=== PATIENT | female | born 1945 | race Caucasian/White ===

== ENCOUNTER 2023-09-22 08:33 | Inpatient (IN) | payer MEDICARE, OTHER, SELFPAY ==
[2023-09-22] VITALS (12 sets, daily range): BP systolic 125–164; BP diastolic 53–78; PULSE 66–84; RESP 15–20; TEMP 36.4–37.1; O2SAT 95–100; BMI 30.2
--- NOTE | 2023-09-22 08:46 | XR_ITS ---
WS: [id number] Exam: XR chest 1V portable [id number] Date/Time of Exam: 09/22/2023 8:56 AM Reason For Exam: dyspnea/cough No previous exams. The lungs are clear and fully expanded. Normal cardiomediastinal silhouette. Bony structures are unre markable. Surgical clips are noted along the RIGHT axilla. IMPRESSION: 1. No acute cardiopulmonary finding.
--- NOTE | 2023-09-22 08:53 | CT_ITS ---
WS: [id number] CT HEAD NONCONTRAST HISTORY: Suspected posterior stroke 5 to 7 days old TECHNIQUE: Contiguous axial imaging performed through the brain in 2.5 mm imaging. Bone and soft tiss ue windows. Sagittal and coronal reformats reviewed. All CT scans at [facility] use at least one of these dose optimization techniques: automated exposure control; mA and/or kV adjustment per pa tient size (includes targeted exams where dose is matched to clinical indication); or iterative recon struction. DLP: 1069.48 mGy.cm COMPARISON: None available. No acute intracranial hemorrhage, midline shift or mass effect. Mild atrophy and small vessel ischemic disease. Remote lacunar infarct RIGHT external capsule. No pos terior circulation infarct. Ventricles: Normal size with no hydrocephalus. Paranasal sinuses: Mucoperiosteal thickening in the LEFT frontal and LEFT frontal ethmoid recess. No air-fluid levels. Mastoid air cells: Well pneumatized. Calvarium and scalp: Skull is intact with no soft tissue edema or swelling. IMPRESSION: 1. No acute intracranial hemorrhage or edema. 2. Mild atrophy and small vessel ischemic disease. 3. No subacute or chronic posterior circulation infarct identified. 4. Lacunar infarct RIGHT external capsule.
--- NOTE | 2023-09-22 08:54 | ED_ITS ---
HPI - Altered Mental Status 2 General: Chief Complaint: Altered Mental Status Stated Complaint: weak Time Seen by Provider: 09/22/23 08:45 Source: patient Mode of arrival: ambulatory History of Present Illness: 78-year-old female presents emergency ro om with family. Approximately a week ago she became ill she had nausea and vomiting progressively worsening difficulty answering questions and worsening word finding. She was seen 4 days ago by her primary care doctor they thought she had gastroenteritis and increased her Prilosec. She is continued to deteriorate unable to answer any questions significant word finding persistent ataxia to the point where she is not able to walk anymore normally she is able to walk transfer without any difficulty independently now she is requiring a wheelchair. She seems to have an expressive and receptive aphasia as at this point. Impressing her directly on history the most likely get out of her was that she denied being short of breath having chest pain or abdominal pain although on redirected questioning she did seem to indicate some abdominal pain and do not know that any of her answers are reliable at this point. Family denies any fever sweats or chills at home denies any hematemesis or coffee-ground emesis. They state that prior to this all beginning last week she seemed to be in relatively good health had no difficulties eating or drinking ambulation speech or cognition MD complaint: altered mental status and confusion Onset (ago): week(s) (1) Timing confirmed by: family member Severity: severe Consistency of symptoms: Getting Worse Review of Systems 2 Card: Denies: chest pain Resp: Denies: dyspnea GI: Reports: abdominal pain (?? Patient answers variably) PFS ED 2 PFSH: Medical History (Updated 09/22/23 @ 17:40 by Mauricio Conde DO) SARATH (obstructive sleep apnea) Patient stopped CPAP Narcolepsy Depression GERD (gastroesophageal reflux disease) Diabetic neuropathy Type 2 diabetes mellitus Osteoporosis Hypertension Surgical History (Updated 09/22/23 @ 12:58 by Brandon Mcginnis MD) History of colon surgery Family History Other Diabetes mellitus, type 2 Social History (Updated 09/22/23 @ 12:59 by Brandon Mcginnis MD) Smoking and tobacco/nicotine status: never used tobacco/nicotine Alcohol intake: never Physical Exam 2 Const: GENERAL APPEARANCE: cooperative and comfortable O RIENTATION/CONSCIOUSNESS: Yes awake HENMT: COMMON NORMALS: normocephalic, atraumatic and hearing grossly normal bilaterally HEAD & SCALP: normocephalic and atraumatic Resp: COMMON NORMALS: normal respiratory effort, No retractions, No use of accessory muscles and clear to auscultation bilaterally AUSCULTATION: clear to auscultation bilaterally Cardio: COMMON NORMALS: regular rate, regular rhythm and No murmurs present (Cardio) RATE: regular rate RHYTHM: regular rhythm GI: COMMON NORMALS: No hepatosplenomegaly present AUSCULTATION: Yes normoactive bowel sounds PALPATION: Yes Tenderness to palpation present (GI), No Guarding due to palpation present (GI) and Yes No hepatosplenomegaly present Extremity: COMMON NORMALS: normal to inspection, capillary refill normal, no clubbing, cyanosis or edema, no calf tenderness and no pedal edema Skin: COMMON NORMALS: no rashes or lesions noted GENERAL SKIN EXAM: no rashes or lesions noted Course 2 Vital Signs: Vital signs: Vital Signs Temperature 97.5 F L 09/22/23 16:00 Pulse Rate 66 09/22/23 16:00 Respiratory Rate 18 09/22/23 16:00 Blood Pressure 164/58 09/22/23 16:00 Pulse Oximetry 95 09/22/23 16:00 Oxygen Delivery Me thod Room Air 09/22/23 15:37 MDM - Altered Mental Status Medical Decision Making Acute kidney injury with cystitis. CT renal stone protocol negative for any obstruction. Will admit Aly placed start IV antibiotics IV fluids discussed with hospitalist orders written Medical Records I reviewed the patient's medical records. Lab Data I reviewed the patient's lab results. 09/22/23 08:53 09/22/23 08:53 Laboratory Results WBC 14.68 10^3/uL (3.29-11.43) H 09/22/23 08:53 RBC 3.92 10^6/uL (3.85-5.65) 09/22/23 08:53 Hgb 10.20 g/dL (11.27-16.99) L 09/22/23 08:53 Hct 30.6 % (36-47) L 09/22/23 08:53 MCV 78.1 fl (85-98) L 09/22/23 08:53 MCH 26.0 pg (27-33) L 09/22/23 08:53 MCHC 33.3 g/dL (30-55) 09/22/23 08:53 RDW 15.8 % (12.1-15.1) H 09/22/23 08:53 Plt Count 112 10^3/cmm (157-399) L 09/22/23 08:53 MPV Not Reportable 09/22/23 08:53 Neut % (Auto) 83.2 % 09/22/23 08:53 Lymph % (Auto) 6.6 % 09/22/23 08:53 [place] % (Auto) 7.0 % 09/22/23 08:53 Eos % (Auto) 2.3 % 09/22/23 08:53 Baso % (Auto) 0.2 % 09/22/23 08:53 Neut # (Auto) 12.20 10^3/uL (1.8-7.7) H 09/22/23 08:53 Lymph # (Auto) 1.0 10^3/uL (0.8-4.8) 09/22/23 08:53 [place] # (Auto) 1.0 10^3/uL (0.2-0.9) H 09/22/23 08:53 Eos # (Auto) 0.3 10^3/uL (0.0-0.8) 09/22/23 08:53 Baso # (Auto) 0.0 10^3/uL (0.0-0.1) 09/22/23 08:53 Nucleated RBC % (auto) 0 % 09/22/23 08:53 Nucleated RBCs # 0.0 /100WBC 09/22/23 08:53 Sodium 122 mmol/L (136-145) L 09/22/23 08:53 Potassium 4.3 mmol/L (3.5-5.1) 09/22/23 08:53 Chloride 85 mmol/L (98-107) L 09/22/23 08:53 Carbon Dioxide 18 mmol/L (22-29) L 09/22/23 08:53 Anion Gap 23.3 (5-19) H 09/22/23 08:53 BUN 95 mg/dL (8-23) H* 09/22/23 08:53 Creatinine 5.3 mg/dL (0.5-0.9) H 09/22/23 08:53 GFR Calculation Not Reportable 09/22/23 08:53 Glucose 133 mg/dL (65-115) H 09/22/23 08:53 Calculated Osmolality 285 mOsm/kg (285-295) 09/22/23 08:53 Calcium 7.7 mg/dL (8.5-10.5) L 09/22/23 08:53 Total Bilirubin 1.1 mg/dL (0.15-1.2) 09/22/23 08:53 AST 26 U/L (0-32) 09/22/23 08:53 ALT 16 U/L (0-33) 09/22/23 08:53 Alkaline Phosphatase 63 U/L (35-105) 09/22/23 08:53 Creatine Kinase 102 U/L (26-192) 09/22/23 08:53 Total Protein 6.2 g/dL (6.6-8.7) L 09/22/23 08:53 Albumin 3.3 g/dL (3.5-5.2) L 09/22/23 08:53 Globulin 2.9 g/dL (1.3-4.6) 09/22/23 08:53 Triglycerides 236 mg/dL (0-150) H 09/22/23 08:53 Urine Color Yellow (Yellow) 09/22/23 09:00 Urine Appearance Cloudy (CLEAR) A 09/22/23 09:00 Urine pH 5 (5-7) 09/22/23 09:00 Ur Specific [place] 1.015 (1.005-1.030) 09/22/23 09:00 Urine Protein 3+ (Negative) H 09/22/23 09:00 Urine Glucose (UA) Norm (Normal) 09/22/23 09:00 Urine Ketones Negative (Negative) 09/22/23 09:00 Urine Blood 3+ (Negative) H 09/22/23 09:00 Urine Nitrate Negative (Negative) 09/22/23 09:00 Urine Bilirubin Neg (Negative) 09/22/23 09:00 Urine Urobilinogen Neg mg/dL (Negative) 09/22/23 09:00 Ur Leukocyte Esterase 1+ (Negative) H 09/22/23 09:00 Urine RBC 5-10 /hpf (0-2) H 09/22/23 09:00 Urine WBC 10-15 /hpf (0-5) H 09/22/23 09:00 Ur Squamous Epith Cells 0-4 /hpf (0-5) H 09/22/23 09:00 Amorphous Sediment Not Reportable 09/22/23 09:00 Urine Bacteria 2+ /hpf (NONE) H 09/22/23 09:00 Urine Mucus Trace /hpf 09/22/23 09:00 All radiology interpretation(s) finalized by discharge Discharge Plan Discharge Patient Disposition: Admitted As Inpatient Admit Provider: Brandon Mcginnis Clinical Impression: Acute kidney injury, Hyponatremia, UTI (urinary tract infection), Anemia, Acute encephalopathy Condition: Stable Coding Level of Care Code 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
--- NOTE | 2023-09-22 08:58 | ECG_ITS ---
[facility] Test Date: 2023-09-22 Pat Name: Darline Crystal Department: Room: Gender: Female Order Clerk: : 1945 Requested By: Mauricio Vásquez Order Number: [id number] Mat MD: Jayleen Reyes M.D. Measurements Intervals [place] Rate: 70 P: 67 AK: 172 QRS: 27 QRSD: 82 T: 81 QT: 406 QTc: 441 Interpretive Statements SINUS RHYTHM No previous ECG available for comparison Electronically Signed On 09-22-2023 21:04:32 [employer]TER by Jayleen Reyes M.D. [id number]
[2023-09-22 09:03] LABS: Basophils % 0.2 %; Eosinophils # 0.3 10^3/uL (0.0-0.8); Eosinophils % 2.3 %; Hematocrit 30.6 % (36-47); Lymphocytes % 6.6 %; Mean Corpuscular HGB Conc 33.3 g/dL (30-55); Mean Corpuscular Volume 78.1 fl (85-98); Neutrophils % 83.2 %; Nucleated Red Blood Cells % 0 %; Platelet Count 112 10^3/cmm (157-399); Red Blood Count 3.92 10^6/uL (3.85-5.65); Red Cell Distribution Width 15.8 % (12.1-15.1); White Blood Count 14.68 10^3/uL (3.29-11.43)
[2023-09-22 09:27] LABS: Alanine Aminotransferase 16 U/L (0-33); Albumin Level 3.3 g/dL (3.5-5.2); Alkaline Phosphatase 63 U/L (35-105); Anion Gap 23.3 (5-19); Aspartate Amino Transferase 26 U/L (0-32); Calcium 7.7 mg/dL (8.5-10.5); Carbon Dioxide 18 mmol/L (22-29); Chloride 85 mmol/L (98-107); Creatinine Clr Calc Pharmacy 8.1521; Globulin 2.9 g/dL (1.3-4.6); Glucose 133 mg/dL (65-115); Osmolality Calculated 285 mOsm/kg (285-295); Potassium 4.3 mmol/L (3.5-5.1); Sodium 122 mmol/L (136-145); Total Bilirubin 1.1 mg/dL (0.15-1.2); Total Protein 6.2 g/dL (6.6-8.7)
[2023-09-22 09:31] LABS: Blood Urea Nitrogen 95 mg/dL (8-23)
[2023-09-22 09:39] LABS: Bilirubin Urine Neg (Negative); Blood Urine 3+ (Negative); Glucose Urine UA Norm (Normal); Ketones Urine Negative (Negative); Nitrate Urine Negative (Negative); Protein Urine 3+ (Negative); Specific Gravity, Urine 1.015 (1.005-1.030); Urine Appearance Cloudy (CLEAR); Urine Color Yellow (Yellow); pH Urine 5 (5-7)
[2023-09-22 09:40] LABS: Add Urine Culture? Yes; Add Urine Microscopic? YES; Bacteria Urine 2+ /hpf; Leukocyte Esterase Urine 1+ (Negative); Mucus Urine TRACE /hpf; Squamous Epithelial Cell Urine 0-4 /hpf (0-5); Urobilinogen Urine Neg (Negative)
--- NOTE | 2023-09-22 10:00 | PC.PHAR ---
MEDICATIONS VERIFIED BY DAUGHTER IN ER 09/22/23
--- NOTE | 2023-09-22 10:30 | CT_ITS ---
WS: [id number] CT ABDOMEN AND PELVIS NONCONTRAST HISTORY: flank pain, confusion. TECHNIQUE: Imaging performed through the abdomen and pelvis. Coronal and sagittal reformats are submi tted. All CT scans at [facility] use at least one of these dose optimization techniques: auto mated exposure control; mA and/or kV adjustment per patient size (includes targeted exams where dose is matched to clinical indication); or iterative reconstruction. DLP: 1401.71 mGy.cm COMPARISON: None available. Lower thorax: Lung bases are clear. Visualized heart is normal. No hiatal hernia. Bilateral breast im plants. Liver: Normal size liver. No mass or bile duct dilatation. Gallbladder: Gallbladder is mildly distended and hydropic. Transverse diameter 4.1 cm. Mild stranding around the gallbladder may be due to motion. Similar stranding noted around additional organs in the upper abdomen. No stones identified by CT. Common bile duct is normal size. Pancreas: Significant breathing motion artifact. Spleen: Normal. Adrenal glands: Normal RIGHT adrenal gland. 1.8 x 1.9 cm mass LEFT adrenal gland. Right kidney: Diffuse perinephric stranding secondary to motion. No obstructive pattern. Slightly bul bous contour of the lower pole but no discrete mass identified on this unenhanced exam. Left kidney: Normal size kidney with no mass or hydronephrosis. Aorta: Mild atherosclerosis abdominal aorta with no aneurysm. No free fluid, intraperitoneal air or significant lymphadenopathy. GI tract: No obstruction. Surgical anastomotic sutures at the rectosigmoid junction. Abdominal wall: Negative. No hernia. Pelvis: Well-distended urinary bladder. Osseous structures: Unremarkable. IMPRESSION: 1. No renal obstruction or calcifications. 2. No GI tract obstruction. 3. Rectosigmoid anastomosis is intact. No obstruction. 4. Mildly hydropic gallbladder. There is mild soft tissue stranding around the gallbladder but this is probably related to motion artifact. Ultrasound evaluation of the gallbladder would provide additi onal information concerning stones and cholecystitis. There is no bile duct dilatation.
[2023-09-22] MEDS: sodium chloride 0.9% 1,000 ML 999 ML IV (10:45)
[2023-09-22] MEDS: cefTRIAXone 1,000 MG in sodium chloride 0.9% (plus) 50 ML 100 MG IV (11:49)
--- NOTE | 2023-09-22 12:56 | P.HP_ITS ---
Providers/Chief Complaint 2 Admitting Physician: Brandon Mcginnis MD Chief Complaint: weak History of Present Illness Darline Crystal is a 78 year old female who comes in the emergency department with her family with history of illness for the last week. She has had vomiting, diarrhea. She saw her primary care provider on Tuesday and he was concerned that she had gastroenteritis, and possible upper GI irritation. PPI was increased. She has had no fevers. No blood in stool or black or tarry stool. She has become less responsive since Tuesday, and significantly confused. She twitches at times, noted yesterday and today. Since getting fluid in the emergency department, she seems less confused. Family reports this is never happened before. Patient is confused, has difficulty giving a history, but can answer a few simple questions. Review of Systems 2 General: Reports: 10 or more systems reviewed and unremarkable except in HPI and below Card: Denies: chest pain Resp: Denies: dyspnea Medications/Allergies Home Medications Medication Instructions Recorded Confirmed Last Taken Type alendronate 70 mg tablet 70 mg PO Q7D 09/22/23 09/22/23 Unknown History amlodipine 5 mg tablet 5 mg PO QAM 09/22/23 09/22/23 09/21/23 History gabapentin 300 mg capsule 300 mg PO TID 09/22/23 09/22/23 09/21/23 History ipratropium bromide 42 mcg (0.06 1 spray intranasal DAILY PRN 09/22/23 09/22/23 Unknown History %) nasal spray ALLERGIES losartan 50 mg-hydrochlorothiazide 1 tab PO QAM 09/22/23 09/22/23 09/21/23 History 12.5 mg tablet metformin 500 mg tablet 500 mg PO BID 09/22/23 09/22/23 09/21/23 History modafinil 100 mg tablet 100 mg PO QAM 09/22/23 09/22/23 09/21/23 History omeprazole 40 mg capsule,delayed 40 mg PO DAILY 09/22/23 09/22/23 09/21/23 History release pramipexole 0.25 mg tablet 0.25 mg PO BID 09/22/23 09/22/23 09/21/23 History tolterodine 2 mg capsule,extended 2 mg PO DAILY 09/22/23 09/22/23 09/21/23 History release 24 hr venlafaxine 75 mg capsule,extended 75 mg PO QAM 09/22/23 09/22/23 09/21/23 History release 24 hr PFSH Acute 2 PFSH: Medical History (Updated 09/22/23 @ 13:30 by Brandon Mcginnis MD) SARATH (obstructive sleep apnea) Patient stopped CPAP Narcolepsy Depression GERD (gastroesophageal reflux disease) Diabetic neuropathy Type 2 diabetes mellitus Osteoporosis Hypertension Surgical History (Updated 09/22/23 @ 12:58 by Brandon Mcginnis MD) History of colon surgery Family History Other Diabetes mellitus, type 2 Social History (Updated 09/22/23 @ 12:59 by Brandon Mcginnis MD) Smoking and tobacco/nicotine status: never used tobacco/nicotine Alcohol intake: never Vitals/I&O/Wt Last Vital Signs Temp 98 F 09/22/23 08:55 Pulse 84 09/22/23 12:30 Resp 19 H 09/22/23 12:30 BP 157/78 09/22/23 12:30 Pulse Ox 99 09/22/23 12:30 O2 Del Method Room Air 09/22/23 11:30 Weight last 48 hrs Weight 74.843 kg Physical Exam 2 Narrative: General exam demonstrates a white female, no distress, confused, occasional twitches HEENT atraumatic normocephalic. Oropharynx clear Neck is supple no lymphadenopathy thyromegaly Cardiovascular regular rate and rhythm without murmur no S3 or S4 Lungs clear no wheezing or crackles Abdomen is soft nontender with positive bowel sounds. No obvious organomegaly exams deferred Extremities no cyanosis, edema, cap refill brisk Skin no rash Neuro no obvious focal deficits, confused as above. Urinary Catheter Management: Aly: Cath Placed During This Visit: yes Urinary Catheter Date of Insertion: 09/22/23 Urinary Catheter Time of Insertion: 12:06 Data 09/22/23 08:53 09/22/23 08:53 Other Labs: MCV 78 LFTs normal Calcium 7.7, albumin 3.3 Urinalysis 3+ protein, 1+ leukocyte Estrace, 5-10 reds, 10-15 whites, 2+ bacteria Abdomen pelvis CT which I reviewed demonstrated no evidence of obstruction, rectosigmoid anastomosis intact, hydropic gallbladder. CT head which I reviewed demonstrated no acute findings, lacunar infarct right internal capsule Chest x-ray which I reviewed no infiltrate EKG per my review demonstrates sinus rhythm, normal axis, nonspecific ST-T wave changes. A&P Assessment and plan (1) Acute kidney injury: Patient presents with acute kidney injury This may have been precipitated by gastroenteritis, either way vomiting and diarrhea component of this as gone away She has approximately 400 cc of urine in her bag in the ER, making me think she may have some degree of urinary retention CT renal protocol demonstrates no evidence of obstruction Concomitant UTI may be present according to urinalysis Avoid renal toxic medications Hydration Continue to follow closely for improvement with daily measurements of creatinine Hold losartan/hydrochlorothiazide, metformin (2) Hyponatremia: Significantly hyponatremic Repeat BMP at approximately 6 PM Continue hydration as she appears to have hypovolemic hyponatremia. (3) UTI (urinary tract infection): Patient appears to have a UTI Urine culture Rocephin 1 g IV every 24 hours (4) Proteinuria: Patient with significant proteinuria. Check urine spot protein and urine spot creatinine Proteinuria could be secondary to nephrotic syndrome as patient's albumin is somewhat low, but could also be secondary to UTI Will go ahead and do urine electrophoresis serum protein electrophoresis (5) Anemia: Will be secondary to renal function Check iron studies, stool Hemoccult Consider follow-up with hematology as patient had renal failure and proteinuria. Electrophoresis studies pending (6) Acute encephalopathy: I think this is likely secondary to her renal dysfunction, in the face of ongoing doses of gabapentin. Monitor closely for improvement Hold Neurontin Plan Multiple other medical problems outlined in past medical history Reconcile medicine list tomorrow, reviewing with her amlodipine can be started as well as perhaps venlafaxine. Will want to see clinical progress/improvement with current treatment plan Full code Heparin for DVT prophylaxis Attestations 2 Medical Necessity Statement*: Will need greater than 2 midnight stay for evaluation and treatment of acute kidney injury Diagnoses Acute kidney injury N17.9 Hyponatremia E87.1 UTI (urinary tract infection) N39.0 Proteinuria R80.9 Anemia D64.9 Acute encephalopathy G93.40 Time Spent (min) 53
[2023-09-22 14:26] LABS: Creatine Phosphokinase 102 U/L (26-192); Triglycerides 236 mg/dL (0-150)
[2023-09-22] MEDS: heparin 5,000 unit/mL INJ 1 mL 5000 UNIT SUBCUT (14:42)
[2023-09-22] MEDS: sodium chloride 0.9% 1,000 ML 125 ML IV (14:43)
[2023-09-22] MEDS: famotidine 20 mg/2 mL INJ 40 MG IVP (14:43)
[2023-09-22 16:41] LABS: Urine Creatinine 61 mg/dL (28-217)
[2023-09-22 16:58] LABS: Urine Protein Random 516 mg/dL
[2023-09-22 18:11] LABS: Ferritin 720 ng/mL (15-150); Iron 72 ug/dL (37-145); Percent Saturation 27.4 % (20-50); Total Iron Binding Capacity 262 mcg/dl; Unsaturated Iron Binding 190 ug/dL (112-347)
[2023-09-22 18:41] LABS: Eosinophil Urine Eosinophils Seen; Urine Eosinophil Count 20 (0-0)
[2023-09-22 21:07] LABS: Carbon Dioxide 18 mmol/L (22-29); Chloride 93 mmol/L (98-107); Creatinine Clr Calc Pharmacy 8.4718; Glucose 90 mg/dL (65-115); Osmolality Calculated 291 mOsm/kg (285-295); Sodium 125 mmol/L (136-145)
[2023-09-22 21:25] LABS: Anion Gap 18.2 (5-19); Potassium 4.2 mmol/L (3.5-5.1)
[2023-09-22 21:28] LABS: Blood Urea Nitrogen 101 mg/dL (8-23)
[2023-09-23] VITALS (7 sets, daily range): BP systolic 141–153; BP diastolic 70–92; PULSE 72–86; RESP 16–22; TEMP 36.3–36.9; O2SAT 92–97; BMI 30.3
[2023-09-23] MEDS: famotidine 20 mg/2 mL INJ 40 MG IVP ×2 (01:22→14:22)
[2023-09-23] MEDS: sodium chloride 0.9% 1,000 ML 125 ML IV (02:22)
[2023-09-23] MEDS: heparin 5,000 unit/mL INJ 1 mL 5000 UNIT SUBCUT ×2 (02:22→14:22)
[2023-09-23 05:34] LABS: Basophils % 0.2 %; Eosinophils # 0.4 10^3/uL (0.0-0.8); Eosinophils % 3.8 %; Hematocrit 29.7 % (36-47); Lymphocytes # 1.2 10^3/uL (0.8-4.8); Lymphocytes % 10.4 %; Mean Corpuscular Hemoglobin 26.2 pg (27-33); Mean Platelet Volume 11.7 fL (7.4-10.4); Monocytes % 8.7 %; Neutrophils # 8.74 10^3/uL (1.8-7.7); Neutrophils % 76.2 %; Nucleated Red Blood Cells % 0 %; Platelet Count 108 10^3/cmm (157-399); Red Blood Count 3.62 10^6/uL (3.85-5.65); Red Cell Distribution Width 16.3 % (12.1-15.1); White Blood Count 11.47 10^3/uL (3.29-11.43)
[2023-09-23 05:57] LABS: Alanine Aminotransferase 15 U/L (0-33); Albumin Level 2.7 g/dL (3.5-5.2); Alkaline Phosphatase 56 U/L (35-105); Aspartate Amino Transferase 28 U/L (0-32); Calcium 6.9 mg/dL (8.5-10.5); Carbon Dioxide 15 mmol/L (22-29); Chloride 95 mmol/L (98-107); Creatinine Clr Calc Pharmacy 8.4718; Globulin 2.7 g/dL (1.3-4.6); Glucose 86 mg/dL (65-115); Magnesium 1.6 mg/dL (1.7-2.3); Osmolality Calculated 296 mOsm/kg (285-295); Phosphorus 6.2 mg/dL (2.5-4.5); Sodium 127 mmol/L (136-145); Thyroid Stimulating Hormone 0.86 uIU/mL (0.27-4.20); Total Bilirubin 0.6 mg/dL (0.15-1.2); Total Protein 5.4 g/dL (6.6-8.7)
[2023-09-23 06:00] LABS: Blood Urea Nitrogen 103 mg/dL (8-23)
[2023-09-23] MEDS: magnesium sulfate premix 1 GM/100 ML PIGGYBACK IV (08:45)
--- NOTE | 2023-09-23 09:49 | P.PN_ITS ---
Subjective 2 Subjective: Family reports she has less twitching. Maybe a little bit more alert but still has some confusion. No other changes. She is still producing urine. Medications: Reviewed: Yes Vitals/I&O/Wt Last Vital Signs Temp 98.4 F 09/23/23 08:00 Pulse 81 09/23/23 08:00 Resp 16 09/23/23 08:00 BP 146/74 09/23/23 08:00 Pulse Ox 92 09/23/23 08:00 O2 Del Method Nasal Cannula 09/23/23 08:00 O2 Flow Rate 3 09/23/23 08:00 09/22/23 09/23/23 09/23/23 22:59 06:59 14:59 Intake Total 500 / 1550 470.833 / 2020.833 220 / 220 Output Total 250 / 250 500 / 750 Balance 250 / 1300 -29.167 / 1270.833 220 / 220 Weight last 48 hrs Weight 75.206 kg Weight 74.843 kg Weight 74.843 kg Physical Exam 2 Narrative: General exam no distress, conversant but confused Neck is supple no lymphadenopathy thyromegaly Cardiovascular regular rate and rhythm without murmur no S3 or S4 Lungs clear no wheezing or crackles Abdomen is soft nontender with positive bowel sounds. No obvious organomegaly Extremities no cyanosis, edema, cap refill brisk Urinary Catheter Management: Aly: Cath Placed During This Visit: yes Reason for Continuing Indwelling Catheter: Other Urinary Catheter Date of Insertion: 09/22/23 Urinary Catheter Time of Insertion: 12:06 Data 09/23/23 05:18 09/23/23 05:18 A&P Assessment and plan (1) Acute kidney injury: Patient presents with acute kidney injury This may have been precipitated by gastroenteritis, either way vomiting and diarrhea component of this as gone away She has approximately 400 cc of urine in her bag in the ER, making me think she may have some degree of urinary retention CT renal protocol demonstrates no evidence of obstruction Concomitant UTI may be present according to urinalysis Avoid renal toxic medications Continue hydration Urine did have eosinophils. Will wait for comment from nephrology. Hold her home medications in case there is concern of interstitial nephritis Continue to follow closely for improvement with daily measurements of creatinine Nephrology consult today as creatinine has not improved CBC, CMP, magnesium level tomorrow (2) Hyponatremia: Significantly hyponatremic Sodium improving Continue hydration as she appears to have hypovolemic hyponatremia. (3) UTI (urinary tract infection): Patient appears to have a UTI Urine culture pending Continue Rocephin 1 g IV every 24 hours (4) Proteinuria: Patient with significant proteinuria. Awaiting spot urine protein and creatinine Proteinuria could be secondary to nephrotic syndrome as patient's albumin is somewhat low, but could also be secondary to UTI Will go ahead and do urine electrophoresis serum protein electrophoresis (5) Anemia: Will be secondary to renal function Not iron deficient. Stool Hemoccult pending Consider follow-up with hematology as patient had renal failure and proteinuria. Electrophoresis studies pending (6) Acute encephalopathy: I think this is likely secondary to her renal dysfunction, in the face of ongoing doses of gabapentin. Monitor closely for improvement Hold Neurontin This appears to be slowly improving Plan Hypomagnesemia. Supplement Multiple other medical problems outlined in past medical history Holding home medicines. Urine eosinophils positive Full code Heparin for DVT prophylaxis Attestations 2 Medical Necessity Statement*: Needs continued hospital stay secondary to renal function, not improved Diagnoses Acute kidney injury N17.9 Hyponatremia E87.1 UTI (urinary tract infection) N39.0 Proteinuria R80.9 Anemia D64.9 Acute encephalopathy G93.40 Time Spent (min) 38
--- NOTE | 2023-09-23 10:50 | P.CONIM_ITS ---
Providers/Reason For Consult 2 Consulting Physician/Specialty*: kommana/nephrology Reason for Consult*: HAILEY Attending Physician: Brandon Mcginnis MD History of Present Illness History of Present Illness Darline Crystal is a 78 year old female Patient is a 78-year-old female with past medical history of hypertension, anxiety presented to the emergency department due to generalized weakness and also have nausea vomiting and decreased p.o. intake as well as diarrhea for the last few days. Patient seen PCP who was thought patient has gastroenteritis. On further evaluation in the emergency department patient was noted to be vital signs stable, lab data significant for HAILEY with a creatinine of 5.3 and a BUN of 95. WBC count was high at 14,000, sodium was low at 122. Patient was started on IV fluids. Repeat labs today showed sodium of 127, CO2 level of 15, creatinine of 5.1 and BUN of 103. Patient currently reports poor p.o. intake due to poor appetite. Otherwise currently on room air and denies any other complaints. Review of Systems 2 Narrative: other ros negative Medications/Allergies Home Medications Medication Instructions Recorded Confirmed Last Taken Type alendronate 70 mg tablet 70 mg PO Q7D 09/22/23 09/22/23 Unknown History amlodipine 5 mg tablet 5 mg PO QAM 09/22/23 09/22/23 09/21/23 History gabapentin 300 mg capsule 300 mg PO TID 09/22/23 09/22/23 09/21/23 History ipratropium bromide 42 mcg (0.06 1 spray intranasal DAILY PRN 09/22/23 09/22/23 Unknown History %) nasal spray ALLERGIES losartan 50 mg-hydrochlorothiazide 1 tab PO QAM 09/22/23 09/22/23 09/21/23 History 12.5 mg tablet metformin 500 mg tablet 500 mg PO BID 09/22/23 09/22/23 09/21/23 History modafinil 100 mg tablet 100 mg PO QAM 09/22/23 09/22/23 09/21/23 History omeprazole 40 mg capsule,delayed 40 mg PO DAILY 09/22/23 09/22/23 09/21/23 History release pramipexole 0.25 mg tablet 0.25 mg PO BID 09/22/23 09/22/23 09/21/23 History tolterodine 2 mg capsule,extended 2 mg PO DAILY 09/22/23 09/22/23 09/21/23 History release 24 hr venlafaxine 75 mg capsule,extended 75 mg PO QAM 09/22/23 09/22/23 09/21/23 History release 24 hr Allergies Allergy/AdvReac Type Severity Reaction Status Date / Time No Known Allergies Allergy Verified 09/22/23 16:31 Current Medications Generic Name Dose Route Start Last Admin Trade Name Freq PRN Reason Stop Dose Admin Famotidine 40 mg 09/22/23 13:56 09/23/23 01:22 Famotidine 20 Mg/2 Ml Inj IVP 40 mg Q12H SANDRA Administration Heparin Sodium (Porcine) 5,000 unit 09/22/23 13:56 09/23/23 02:22 Heparin 5,000 Unit/Ml Inj 1 Ml SUBCUT 5,000 unit Q12H SANDRA Administration PFSH Acute 2 PFSH: Medical History (Updated 09/22/23 @ 17:40 by Mauricio Conde DO) SARATH (obstructive sleep apnea) Patient stopped CPAP Narcolepsy Depression GERD (gastroesophageal reflux disease) Diabetic neuropathy Type 2 diabetes mellitus Osteoporosis Hypertension Surgical History (Updated 09/22/23 @ 12:58 by Brandon Mcginnis MD) History of colon surgery Family History Other Diabetes mellitus, type 2 Social History (Updated 09/22/23 @ 12:59 by Brandon Mcginnis MD) Smoking and tobacco/nicotine status: never used tobacco/nicotine Alcohol intake: never Vitals/I&O/Wt Last Vital Signs Temp 98.4 F 09/23/23 08:00 Pulse 81 09/23/23 08:00 Resp 16 09/23/23 08:00 BP 146/74 09/23/23 08:00 Pulse Ox 92 09/23/23 08:00 O2 Del Method Nasal Cannula 09/23/23 08:00 O2 Flow Rate 3 09/23/23 08:00 09/22/23 09/23/23 09/23/23 22:59 06:59 14:59 Intake Total 500 / 1550 470.833 / 2020.833 220 / 220 Output Total 250 / 250 500 / 750 Balance 250 / 1300 -29.167 / 1270.833 220 / 220 Weight last 48 hrs Weight 75.206 kg Weight 74.843 kg Weight 74.843 kg Physical Exam 2 Narrative: awake , alert no distress no pedal edema flat affect s1 s2 RRR per report CLear bryon per report Urinary Catheter Management: Aly: Cath Placed During This Visit: yes Reason for Continuing Indwelling Catheter: Other Urinary Catheter Date of Insertion: 09/22/23 Urinary Catheter Time of Insertion: 12:06 Data 09/23/23 05:18 09/23/23 05:18 A&P Assessment and plan (1) Hyponatremia: (2) Acute kidney injury: Plan 1. Acute kidney injury: Baseline renal function not available, presented with a creatinine of 5.3 associated with hyponatremia metabolic acidosis --all likely from prerenal/possibly have developed ATN at this point. -No indication for dialysis currently, but if renal function fails to improve will consider temporary dialysis. continue supportive care, switched normal saline to bicarbonate drip, follow-up on repeat BMP results. -Avoid nephrotoxins and IV contrast studies. 2. Hyponatremia: Secondary to hypovolemia in the setting of poor p.o. intake, also patient was on HCTZ at home which is discontinued now. Will not restart at discharge. Continue IV fluids and monitor. Sodium improving 3. Metabolic acidosis: IV fluids switch to bicarbonate drip. 4. History of hypertension: Hold HCTZ and losartan, monitor 5. Anemia: Monitor 6. Gastroenteritis: Supportive care and management per primary team Patient evaluated using audiovisual cart. Time spent 40 minutes Consult Attestations 2 Medical Necessity Statement: per prakash Coding Level of Care Code Acute Code for [facility] Diagnoses Hyponatremia E87.1 Acute kidney injury N17.9
[2023-09-23] MEDS: cefTRIAXone 1,000 MG in sodium chloride 0.9% (plus) 50 ML 100 MG IV (11:43)
[2023-09-23] MEDS: sodium bicarbonate 150 MEQ in dextrose 5% 1,000 ML 100 MEQ IV (11:43)
[2023-09-23 12:15] LABS: PROTEIN, TOTAL 5.5 g/dL (6.1-8.1)
[2023-09-23] MEDS: acetaminophen 325 mg Tablet 650 MG PO (12:27)
[2023-09-23 18:20] LABS: Creatinine, Random Urine 66 mg/dL (20-275); Protein, Total, Random 545 mg/dL (5-24); Protein/Creatinine Ratio 8.258 (0.024-0.184); Protein/Creatinine Ratio 8258 mg/g creat (24-184)
[2023-09-23] MEDS: haloperidol inj 5 mg/mL INJ 1 mL 2 MG IM (20:34)
--- NOTE | 2023-09-23 21:36 | PC.NURSE ---
Addendum entered by My Munoz LPN 09/23/23 22:04: Called [facility] and got a one time order for 2mg Haldol IM; pt tolerated well and is resting comfortably in bed. Original Note: At around 1946 patient is still confused, can tell me her name and birthday but does not know where she is or why she is in the hospital. Pt insisted that she is going home and that something wrong is going on here. In an attempt to calm her down I called her brother Oj and her granddaughter Aleida, who both talked to her and reassured her she was safe. Pts granddaughter stated she is going to come and sit with the pt for the night to keep her calm; grand daughter is bedside now.
[2023-09-24] VITALS (7 sets, daily range): BP systolic 127–152; BP diastolic 65–92; PULSE 74–87; RESP 16–18; TEMP 36.7–37.2; O2SAT 93–98
[2023-09-24] MEDS: famotidine 20 mg/2 mL INJ 40 MG IVP (01:36)
[2023-09-24] MEDS: heparin 5,000 unit/mL INJ 1 mL 5000 UNIT SUBCUT ×2 (02:46→14:59)
[2023-09-24 03:12] LABS: Basophils % 0.2 %; Eosinophils # 0.4 10^3/uL (0.0-0.8); Eosinophils % 3.5 %; Hematocrit 24.7 % (36-47); Lymphocytes # 1.7 10^3/uL (0.8-4.8); Lymphocytes % 16.3 %; Mean Corpuscular HGB Conc 33.6 g/dL (30-55); Mean Corpuscular Hemoglobin 26.3 pg (27-33); Mean Corpuscular Volume 78.2 fl (85-98); Mean Platelet Volume 10.9 fL (7.4-10.4); Monocytes # 0.9 10^3/uL (0.2-0.9); Monocytes % 8.8 %; Neutrophils # 7.46 10^3/uL (1.8-7.7); Neutrophils % 70.1 %; Nucleated Red Blood Cells % 0 %; Platelet Count 134 10^3/cmm (157-399); Red Blood Count 3.16 10^6/uL (3.85-5.65); Red Cell Distribution Width 16.3 % (12.1-15.1); White Blood Count 10.65 10^3/uL (3.29-11.43)
[2023-09-24 03:37] LABS: Alanine Aminotransferase 14 U/L (0-33); Albumin Level 2.7 g/dL (3.5-5.2); Alkaline Phosphatase 55 U/L (35-105); Anion Gap 17.3 (5-19); Aspartate Amino Transferase 22 U/L (0-32); Calcium 7.1 mg/dL (8.5-10.5); Carbon Dioxide 24 mmol/L (22-29); Chloride 94 mmol/L (98-107); Globulin 2.4 g/dL (1.3-4.6); Glucose 117 mg/dL (65-115); Magnesium 1.9 mg/dL (1.7-2.3); Osmolality Calculated 303 mOsm/kg (285-295); Potassium 3.3 mmol/L (3.5-5.1); Sodium 132 mmol/L (136-145); Total Bilirubin 0.5 mg/dL (0.15-1.2); Total Protein 5.1 g/dL (6.6-8.7)
[2023-09-24 03:50] LABS: Blood Urea Nitrogen 91 mg/dL (8-23)
[2023-09-24] MEDS: sodium bicarbonate 150 MEQ in dextrose 5% 1,000 ML 100 MEQ IV (05:09)
[2023-09-24] MEDS: acetaminophen 325 mg Tablet 650 MG PO ×2 (09:37→15:00)
--- NOTE | 2023-09-24 10:16 | P.PN_ITS ---
Subjective 2 Subjective: feels better PO intake improved Medications: Reviewed: Yes Vitals/I&O/Wt Last Vital Signs Temp 98.1 F 09/24/23 00:00 Pulse 81 09/24/23 07:38 Resp 16 09/24/23 07:38 BP 133/65 09/24/23 07:38 Pulse Ox 98 09/24/23 07:38 O2 Del Method Room Air 09/24/23 00:00 O2 Flow Rate 3 09/23/23 08:00 09/23/23 09/24/23 09/24/23 22:59 06:59 14:59 Intake Total 120 / 1390 1145 / 2535 120 / 120 Output Total 1800 / 1800 400 / 2200 Balance -1680 / -410 745 / 335 120 / 120 Weight last 48 hrs Weight 82.781 kg Weight 75.206 kg Weight 74.843 kg Physical Exam 2 Narrative: awake , alert no distress no pedal edema flat affect s1 s2 RRR per report CLear bryon per report Urinary Catheter Management: Aly: Cath Placed During This Visit: yes Reason for Continuing Indwelling Catheter: Acute Urinary Retention or Obstruction Urinary Catheter Date of Insertion: 09/22/23 Urinary Catheter Time of Insertion: 12:06 Data 09/24/23 02:40 09/24/23 02:40 Micro: Microbiology 09/22/23 09:00 Urine Culture - Preliminary Urine,Clean Catch A&P Assessment and plan (1) Hyponatremia: (2) Acute kidney injury: Plan 1. Acute kidney injury: Baseline renal function not available, presented with a creatinine of 5.3 associated with hyponatremia metabolic acidosis --all likely from prerenal/possibly have developed ATN at this point. -No indication for dialysis currently, but if renal function fails to improve will consider temporary dialysis. continue supportive care, switch IVFs to NS follow-up on repeat BMP results. -Avoid nephrotoxins and IV contrast studies. 2. Hyponatremia: Secondary to hypovolemia in the setting of poor p.o. intake, also patient was on HCTZ at home which is discontinued now. Will not restart at discharge. Continue IV fluids and monitor. Sodium improving 3. Metabolic acidosis:improved , s/p bicarbonate drip. 4. History of hypertension: Hold HCTZ and losartan, monitor 5. Anemia: Monitor 6. Gastroenteritis: Supportive care and management per primary team Patient evaluated using audiovisual cart. Time spent 40 minutes Attestations 2 Medical Necessity Statement*: per prakash Coding Level of Care Code Acute Code for [facility] Diagnoses Hyponatremia E87.1 Acute kidney injury N17.9
--- NOTE | 2023-09-24 11:08 | P.PN_ITS ---
Subjective 2 Subjective: feels better Medications: Reviewed: Yes Vitals/I&O/Wt Last Vital Signs Temp 98.1 F 09/24/23 00:00 Pulse 81 09/24/23 07:38 Resp 16 09/24/23 07:38 BP 133/65 09/24/23 07:38 Pulse Ox 98 09/24/23 07:38 O2 Del Method Room Air 09/24/23 00:00 O2 Flow Rate 3 09/23/23 08:00 09/23/23 09/24/23 09/24/23 22:59 06:59 14:59 Intake Total 120 / 1390 1145 / 2535 678.333 / 678.333 Output Total 1800 / 1800 400 / 2200 Balance -1680 / -410 745 / 335 678.333 / 678.333 Weight last 48 hrs Weight 82.781 kg Weight 75.206 kg Weight 74.843 kg Physical Exam 2 Narrative: awake , alert no distress no pedal edema flat affect s1 s2 RRR per report CLear bryon per report Urinary Catheter Management: Aly: Cath Placed During This Visit: yes Reason for Continuing Indwelling Catheter: Acute Urinary Retention or Obstruction Urinary Catheter Date of Insertion: 09/22/23 Urinary Catheter Time of Insertion: 12:06 Data 09/24/23 02:40 09/24/23 02:40 Micro: Microbiology 09/22/23 09:00 Urine Culture - Preliminary Urine,Clean Catch A&P Assessment and plan (1) Hyponatremia: (2) Acute kidney injury: Plan 1. Acute kidney injury: Baseline renal function not available, presented with a creatinine of 5.3 associated with hyponatremia metabolic acidosis --all likely from prerenal/possibly have developed ATN at this point. -No indication for dialysis currently, but if renal function fails to improve will consider temporary dialysis. continue supportive care, switched IVFs to NS --> will DC IVFs later today , -Cr improving - resume diuretics in 1-2 days -Avoid nephrotoxins and IV contrast studies. 2. Hyponatremia: Secondary to hypovolemia in the setting of poor p.o. intake, also patient was on HCTZ at home which is discontinued now. Will not restart at discharge. Continue IV fluids and monitor. Sodium improving 3. Metabolic acidosis:improved , s/p bicarbonate drip. 4. History of hypertension: Hold HCTZ and losartan, monitor 5. Anemia: Monitor 6. Gastroenteritis: Supportive care and management per primary team Patient evaluated using audiovisual cart. Time spent 40 minutes Attestations 2 Medical Necessity Statement*: per prakash Coding Level of Care Code Acute Code for [facility] Diagnoses Hyponatremia E87.1 Acute kidney injury N17.9
[2023-09-24] MEDS: cefTRIAXone 1,000 MG in sodium chloride 0.9% (plus) 50 ML 100 MG IV (11:42)
[2023-09-24] MEDS: sodium chloride 0.9% 1,000 ML 75 ML IV (11:43)
--- NOTE | 2023-09-24 14:02 | P.PN_ITS ---
Subjective 2 Subjective: Patient was seen this morning, patient's son is at bedside she is alert to person, to place, to time she follows commands she was able to ambulate to the bathroom, in the evening time she did have episodes of confusion requiring Haldol she does not remember the event well, she tells me that she lives at home by herself but her granddaughter is close to her she is never had confusion at home, currently she denies headache, blurry vision or recent falls, no flank pain, denies personal history of kidney failure but does have diabetes, she does have a family history of renal failure in her brother but he had multiple health problems, Vitals/I&O/Wt Last Vital Signs Temp 98.2 F 09/24/23 11:47 Pulse 87 09/24/23 11:47 Resp 17 09/24/23 11:47 BP 152/67 09/24/23 11:47 Pulse Ox 94 09/24/23 11:47 O2 Del Method Room Air 09/24/23 11:47 O2 Flow Rate 3 09/23/23 08:00 09/23/23 09/24/23 09/24/23 22:59 06:59 14:59 Intake Total 120 / 1390 1145 / 2535 968.333 / 968.333 Output Total 1800 / 1800 400 / 2200 Balance -1680 / -410 745 / 335 968.333 / 968.333 Weight last 48 hrs Weight 82.781 kg Weight 75.206 kg Physical Exam 2 Const: COMMON NORMALS: no acute distress and patient oriented x3 Resp: COMMON NORMALS: normal respiratory effort, No retractions, No use of accessory muscles and clear to auscultation bilaterally AUSCULTATION: clear to auscultation bilaterally Cardio: COMMON NORMALS: regular rate, regular rhythm, S1 normal heart sound present and S2 normal heart sound present RATE: regular rate RHYTHM: r egular rhythm HEART SOUNDS: S1 normal heart sound present and S2 normal heart sound present GI: COMMON NORMALS: Normal to inspection, nondistended, normoactive bowel sounds present and non-tender Extremity: COMMON NORMALS: no pedal edema Neuro: COMMON NORMALS: patient oriented x3 Psych: COMMON NORMALS: mental status grossly normal Urinary Catheter Management: Aly: Cath Placed During This Visit: yes Reason for Continuing Indwelling Catheter: Acute Urinary Retention or Obstruction Urinary Catheter Date of Insertion: 09/22/23 Urinary Catheter Time of Insertion: 12:06 Data 09/24/23 02:40 09/24/23 02:40 Micro: Microbiology 09/22/23 09:00 Urine Culture - Final Urine,Clean Catch A&P Assessment and plan (1) Acute kidney injury: Creatinine 5.2 This may have been precipitated by gastroenteritis, either way vomiting and diarrhea component of this as gone away Stool studies pending Urine output [address] renal protocol demonstrates no evidence of obstruction Concomitant UTI may be present according to urinalysis Avoid renal toxic medications Continue hydration Urine did have eosinophils. Hold her home medications in case there is concern of interstitial nephritis Continue to follow closely for improvement with daily measurements of creatinine Nephrology consult today as creatinine has not improved CBC, CMP, magnesium level tomorrow (2) Hyponatremia: Significantly hyponatremic Sodium improving Continue hydration as she appears to have hypovolemic hyponatremia. (3) UTI (urinary tract infection): Patient appears to have a UTI Urine culture pending Continue Rocephin 1 g IV every 24 hours (4) Proteinuria: Patient with significant proteinuria. Awaiting spot urine protein and creatinine Proteinuria could be secondary to nephrotic syndrome as patient's albumin is somewhat low, but could also be secondary to UTI Will go ahead and do urine electrophoresis serum protein electrophoresis (5) Anemia: Will be secondary to renal function Not iron deficient. Stool Hemoccult pending Continue Protonix, Carafate Consider follow-up with hematology as patient had renal failure and proteinuria. Electrophoresis studies pending (6) Acute encephalopathy: Possible uremic encephalopathy Possible associated UTI Plan Hypomagnesemia. Supplement Multiple other medical problems outlined in past medical history Holding home medicines. Urine eosinophils positive Full code Heparin for DVT prophylaxis Patient requires hospitalization for HAILEY creatinine 5.2 requiring IV fluids, uremic encephalopathy, UTI requiring antibiotics, nephrology consultation, spoke to patient, spoke to family, spoke to nursing staff Attestations 2 Medical Necessity Statement*: Patient requires hospitalization for HAILEY 5.2 requiring IV fluids, uremic encephalopathy, UTI, nephrology consultation Diagnoses Acute kidney injury N17.9 Hyponatremia E87.1 UTI (urinary tract infection) N39.0 Proteinuria R80.9 Anemia D64.9 Acute encephalopathy G93.40
[2023-09-24] MEDS: sucralfate 1 gm/10 mL Oral Liq UDC PO ×2 (14:58→19:40)
[2023-09-24 16:04] LABS: Basophils % 0.1 %; Eosinophils # 0.4 10^3/uL (0.0-0.8); Eosinophils % 3.2 %; Hematocrit 25.3 % (36-47); Lymphocytes # 2.2 10^3/uL (0.8-4.8); Lymphocytes % 18.3 %; Mean Corpuscular HGB Conc 33.2 g/dL (30-55); Mean Corpuscular Hemoglobin 26.3 pg (27-33); Mean Corpuscular Volume 79.1 fl (85-98); Monocytes # 1.3 10^3/uL (0.2-0.9); Monocytes % 10.7 %; Neutrophils % 66.8 %; Nucleated Red Blood Cells % 0 %; Platelet Count 151 10^3/cmm (157-399); Red Cell Distribution Width 16.6 % (12.1-15.1); White Blood Count 11.84 10^3/uL (3.29-11.43)
[2023-09-24 17:59] LABS: Glucose Point of Care 126 mg/dL (70-110)
[2023-09-24] MEDS: pantoprazole 40 mg SDV IVP (21:38)
[2023-09-24 21:53] LABS: Glucose Point of Care 108 mg/dL (70-110)
[2023-09-25] VITALS (9 sets, daily range): BP systolic 120–174; BP diastolic 62–88; PULSE 72–84; RESP 18–19; TEMP 36.4–37.1; O2SAT 92–96
[2023-09-25] MEDS: sodium chloride 0.9% 1,000 ML 75 ML IV (01:17)
[2023-09-25] MEDS: sucralfate 1 gm/10 mL Oral Liq UDC PO ×4 (01:25→19:36)
[2023-09-25] MEDS: heparin 5,000 unit/mL INJ 1 mL 5000 UNIT SUBCUT ×2 (01:25→14:42)
[2023-09-25 03:00] LABS: Basophils % 0.2 %; Eosinophils # 0.4 10^3/uL (0.0-0.8); Eosinophils % 3.3 %; Hematocrit 24.5 % (36-47); Lymphocytes # 1.7 10^3/uL (0.8-4.8); Lymphocytes % 15.2 %; Mean Corpuscular HGB Conc 33.5 g/dL (30-55); Mean Corpuscular Volume 77.8 fl (85-98); Monocytes # 0.9 10^3/uL (0.2-0.9); Monocytes % 8.3 %; Neutrophils # 7.93 10^3/uL (1.8-7.7); Neutrophils % 72.2 %; Nucleated Red Blood Cells % 0 %; Platelet Count 181 10^3/cmm (157-399); Red Blood Count 3.15 10^6/uL (3.85-5.65); Red Cell Distribution Width 16.6 % (12.1-15.1); White Blood Count 10.98 10^3/uL (3.29-11.43)
[2023-09-25 03:21] LABS: Alanine Aminotransferase 15 U/L (0-33); Albumin Level 2.8 g/dL (3.5-5.2); Alkaline Phosphatase 64 U/L (35-105); Anion Gap 13.1 (5-19); Aspartate Amino Transferase 21 U/L (0-32); Blood Urea Nitrogen 77 mg/dL (8-23); Calcium 7.2 mg/dL (8.5-10.5); Carbon Dioxide 25 mmol/L (22-29); Chloride 92 mmol/L (98-107); Creatinine Clr Calc Pharmacy 9.4777; Globulin 2.7 g/dL (1.3-4.6); Glucose 104 mg/dL (65-115); Osmolality Calculated 287 mOsm/kg (285-295); Phosphorus 5.1 mg/dL (2.5-4.5); Potassium 3.1 mmol/L (3.5-5.1); Sodium 127 mmol/L (136-145); Total Bilirubin 0.4 mg/dL (0.15-1.2); Total Protein 5.5 g/dL (6.6-8.7)
[2023-09-25 06:55] LABS: Glucose Point of Care 109 mg/dL (70-110)
[2023-09-25] MEDS: amlodipine 10 mg Tablet PO ×2 (09:02→09:03)
[2023-09-25] MEDS: acetaminophen 325 mg Tablet 650 MG PO (09:02)
[2023-09-25] MEDS: potassium chloride ER 20 mEq Tablet 40 MEQ PO (09:02)
--- NOTE | 2023-09-25 09:58 | P.PN_ITS ---
Subjective 2 Subjective: doing better Medications: Reviewed: Yes Vitals/I&O/Wt Last Vital Signs Temp 97.8 F 09/25/23 08:55 Pulse 72 09/25/23 08:55 Resp 18 09/25/23 08:55 BP 155/62 09/25/23 08:55 Pulse Ox 96 09/25/23 08:55 O2 Del Method Room Air 09/25/23 08:55 O2 Flow Rate 3 09/23/23 08:00 09/24/23 09/25/23 09/25/23 22:59 06:59 14:59 Intake Total 1000 / 1968.333 Output Total 650 / 650 400 / 1050 Balance -650 / 318.333 600 / 918.333 Weight last 48 hrs Weight 81.817 kg Weight 82.781 kg Physical Exam 2 Narrative: awake , alert no distress no pedal edema flat affect s1 s2 RRR per report CLear bryon per report Urinary Catheter Management: Aly: Cath Placed During This Visit: yes Reason for Continuing Indwelling Catheter: Acute Urinary Retention or Obstruction Urinary Catheter Date of Insertion: 09/22/23 Urinary Catheter Time of Insertion: 12:06 Data 09/25/23 02:17 09/25/23 02:17 Micro: Microbiology 09/22/23 09:00 Urine Culture - Final Urine,Clean Catch A&P Assessment and plan (1) Hyponatremia: (2) Acute kidney injury: Plan 1. Acute kidney injury: Baseline renal function not available, presented with a creatinine of 5.3 associated with hyponatremia metabolic acidosis --all likely from prerenal/possibly have developed ATN at this point. -No indication for dialysis currently, continue supportive care, -Cr improving - resume diuretics in 1-2 days -Avoid nephrotoxins and IV contrast studies. 2. Hyponatremia: Secondary to hypovolemia in the setting of poor p.o. intake, also patient was on HCTZ at home which is discontinued now. Will not restart at discharge. Continue IV fluids and monitor. Sodium improving 3. Metabolic acidosis:improved , s/p bicarbonate drip. 4. History of hypertension: Hold HCTZ and losartan, monitor 5. Anemia: Monitor 6. Gastroenteritis: Supportive care and management per primary team Patient evaluated using audiovisual cart. Time spent 20 minutes Attestations 2 Medical Necessity Statement*: per prakash Coding Level of Care Code Acute Code for [facility] Diagnoses Hyponatremia E87.1 Acute kidney injury N17.9
[2023-09-25] MEDS: pantoprazole 40 mg SDV IVP ×2 (10:11→21:46)
[2023-09-25] MEDS: cefTRIAXone 1,000 MG in sodium chloride 0.9% (plus) 50 ML 100 MG IV (10:13)
--- NOTE | 2023-09-25 11:06 | ECG_ITS ---
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 Measurements Intervals [place] Rate: 81 P: 44 NE: 168 QRS: -5 QRSD: 87 T: 64 QT: 396 QTc: 461 Interpretive Statements SINUS RHYTHM Compared to ECG 09/22/2023 08:58:32 No significant changes Electronically Signed On 09-26-2023 8:49:10 [employer] by Vazquez Contreras M.D. [id number]
--- NOTE | 2023-09-25 11:28 | XRR_ITS ---
PROCEDURE INFORMATION: Exam: XR Chest Exam date and time: 09/25/2023 12:20 PM Age: 78 years old Clinical indication: Pain; Shortness of breath; Chest pressure; Additional info: SOB, pain TECHNIQUE: Imaging protocol: Radiologic exam of the chest. Views: 1 view. COMPARISON: CR XR chest 1V portable [id number] 09/22/2023 9:53 AM FINDINGS: Tubes, catheters and devices: Clips project over right axilla/chest wall. Lungs: Slight additional opacity over lower medial left hemithorax, over heart, possibly due to differences in degree of inspiration, positioning during imaging, though infiltrate, atelectasis, or other process not completely excluded. Follow-up standard upright PA and lateral views of the chest with deep inspiration recommended when possible. Pleural spaces: No large or obvious pneumothorax nor pleural effusion seen. Heart/Mediastinum: Heart size appears within normal. Vasculature: Atherosclerotic disease aorta. Bones/joints: Degenerative changes spine. Soft tissues: Faint haziness over lower thorax bilaterally possibly due to overlap with evidence of bilateral breast implants. XR/XR chest 1V portable [id number] IMPRESSION: Slight additional opacity over lower medial left hemithorax, over heart, possibly due to differences in degree of inspiration, positioning during imaging, though infiltrate, atelectasis, or other process not completely excluded. Follow-up standard upright PA and lateral views of the chest with deep inspiration recommended when possible.
[2023-09-25 11:43] LABS: Glucose Point of Care 112 mg/dL (70-110)
--- NOTE | 2023-09-25 12:38 | P.PN_ITS ---
Subjective 2 Subjective: - Patient was seen this morning, john martinez at bedside, she is alert to person, to place, not to time she is very sleepy this morning she tells me that she did not get much sleep last night, she really does not have any complaints this morning, she really wanted to go home, discussed her elevated kidney function, which is improving her good urine output will continue to monitor kidney function, she is agreeable, creatinine is 4.8, we discussed her sodium 127 and potassium 3.1 -Spoke to patient, spoke to patient's farzaneh martinez, spoke to nursing staff ? Later on the morning, nursing staff informed me that patient was complaining of feeling lightheaded, short of breath, chest discomfort, advised nursing staff to stop her fluids order chest x-ray BMP troponin series, to continue to monitor clinical status, vitals blood pressure 165/66 pulse 73 respiratory 18, 96% on room air 97.5 ?F ? Given her hyponatremia, repeat BMP Vitals/I&O/Wt Last Vital Signs Temp 97.5 F L 09/25/23 12:00 Pulse 73 09/25/23 12:00 Resp 18 09/25/23 12:00 BP 165/66 09/25/23 12:00 Pulse Ox 96 09/25/23 12:00 O2 Del Method Room Air 09/25/23 12:00 O2 Flow Rate 3 09/23/23 08:00 09/24/23 09/25/23 09/25/23 22:59 06:59 14:59 Intake Total 1000 / 1968.333 50 / 50 Output Total 650 / 650 400 / 1050 Balance -650 / 318.333 600 / 918.333 50 / 50 Weight last 48 hrs Weight 81.817 kg Weight 82.781 kg Physical Exam 2 Const: COMMON NORMALS: no acute distress ORIENTATION/CONSCIOUSNESS: Yes awake, Yes oriented to person and Yes oriented to place; not oriented to time Resp: COMMON NORMALS: normal respiratory effort, No retractions, No use of accessory muscles and clear to auscultation bilaterally AUSCULTATION: clear to auscultation bilaterally Cardio: COMMON NORMALS: regular rate, regular rhythm, S1 normal heart sound present and S2 normal heart sound present RATE: regular rate RHYTHM: r egular rhythm HEART SOUNDS: S1 normal heart sound present and S2 normal heart sound present GI: COMMON NORMALS: Normal to inspection, nondistended, normoactive bowel sounds present and non-tender Extremity: COMMON NORMALS: no pedal edema Neuro: SENSORIUM/ORIENTATION: Yes oriented to person, Yes oriented to place and No oriented to time Psych: COMMON NORMALS: mental status grossly normal Urinary Catheter Management: Aly: Cath Placed During This Visit: yes Reason for Continuing Indwelling Catheter: Acute Urinary Retention or Obstruction Urinary Catheter Date of Insertion: 09/22/23 Urinary Catheter Time of Insertion: 12:06 Data 09/25/23 02:17 09/25/23 02:17 Micro: Microbiology 09/25/23 11:51 Stool Lactoferrin - Final Stool Occult Blood (FIT) - Final 09/22/23 09:00 Urine Culture - Final Urine,Clean Catch A&P Assessment and plan (1) Acute kidney injury: Creatinine 4.8 This may have been precipitated by gastroenteritis, either way vomiting and diarrhea component of this as gone away Stool studies pending Urine output [address] renal protocol demonstrates no evidence of obstruction Concomitant UTI may be present according to urinalysis Avoid renal toxic medications Continue hydration Urine did have eosinophils. Hold her home medications in case there is concern of interstitial nephritis Continue to follow closely for improvement with daily measurements of creatinine Nephrology consult today as creatinine has not improved CBC, CMP, magnesium level tomorrow (2) Hyponatremia: Significantly hyponatremic Monitor serum sodium Continue hydration as she appears to have hypovolemic hyponatremia. (3) UTI (urinary tract infection): Patient appears to have a UTI Urine culture pending Continue Rocephin 1 g IV every 24 hours (4) Proteinuria: Patient with significant proteinuria. Awaiting spot urine protein and creatinine Proteinuria could be secondary to nephrotic syndrome as patient's albumin is somewhat low, but could also be secondary to UTI Will go ahead and do urine electrophoresis serum protein electrophoresis (5) Anemia: Will be secondary to renal function Not iron deficient. Stool Hemoccult pending Continue Protonix, Carafate Consider follow-up with hematology as patient had renal failure and proteinuria. Electrophoresis studies pending (6) Acute encephalopathy: Possible uremic encephalopathy Possible associated UTI (7) Hypokalemia: Plan Hypomagnesemia. Supplement Multiple other medical problems outlined in past medical history Holding home medicines. Urine eosinophils positive Full code Heparin for DVT prophylaxis - discussed her elevated kidney function, which is improving her good urine output will continue to monitor kidney function, she is agreeable, creatinine is 4.8, we discussed her sodium 127 and potassium 3.1 -Spoke to patient, spoke to patient's daughter, spoke to nursing staff ? Later on the morning, nursing staff informed me that patient was complaining of feeling lightheaded, short of breath, chest discomfort, advised nursing staff to stop her fluids order chest x-ray BMP troponin series, to continue to monitor clinical status, vitals blood pressure 165/66 pulse 73 respiratory 18, 96% on room air 97.5 ?F ? Given her hyponatremia, repeat BMP Attestations 2 Medical Necessity Statement*: Patient requires hospitalization due to HAILEY, hyponatremia, now with lightheadedness, chest pain, shortness of breath requiring further workup, and inpatient evaluation including chest x-ray, troponin, stopping fluids, repeat BMP with hyponatremia, troponin series, EKG Diagnoses Acute kidney injury N17.9 Hyponatremia E87.1 UTI (urinary tract infection) N39.0 Proteinuria R80.9 Anemia D64.9 Acute encephalopathy G93.40 Hypokalemia E87.6
[2023-09-25 13:26] LABS: Basophils % 0.2 %; Eosinophils # 0.3 10^3/uL (0.0-0.8); Eosinophils % 2.5 %; Hematocrit 25.8 % (36-47); Lymphocytes # 1.7 10^3/uL (0.8-4.8); Lymphocytes % 15.6 %; Mean Corpuscular HGB Conc 33.3 g/dL (30-55); Mean Corpuscular Hemoglobin 26.6 pg (27-33); Mean Corpuscular Volume 79.9 fl (85-98); Mean Platelet Volume 10.5 fL (7.4-10.4); Monocytes # 0.9 10^3/uL (0.2-0.9); Monocytes % 8.2 %; Neutrophils # 8.04 10^3/uL (1.8-7.7); Neutrophils % 72.7 %; Nucleated Red Blood Cells % 0 %; Platelet Count 197 10^3/cmm (157-399); Red Blood Count 3.23 10^6/uL (3.85-5.65); Red Cell Distribution Width 16.7 % (12.1-15.1); White Blood Count 11.07 10^3/uL (3.29-11.43)
[2023-09-25 13:53] LABS: Anion Gap 16.6 (5-19); Blood Urea Nitrogen 76 mg/dL (8-23); Calcium 7.2 mg/dL (8.5-10.5); Carbon Dioxide 24 mmol/L (22-29); Chloride 96 mmol/L (98-107); Glucose 96 mg/dL (65-115); NT Pro B Type Natriuretic Pept 9798 pg/mL (0-450); Osmolality Calculated 298 mOsm/kg (285-295); Potassium 3.6 mmol/L (3.5-5.1); Sodium 133 mmol/L (136-145)
[2023-09-25 13:55] LABS: Troponin(5th) Baseline 27 ng/L (0-10)
[2023-09-25 13:56] LABS: Creatinine Clr Calc Pharmacy 8.8657
--- NOTE | 2023-09-25 14:43 | ECG_ITS ---
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 [id number]
[2023-09-25 15:04] LABS: Troponin 5 2HR 26.62 ng/L (0-10)
[2023-09-25 15:07] LABS: Troponin 5 2HR Delta -0.38 ABS# (0-10)
[2023-09-25 16:15] LABS: Glucose Point of Care 86 mg/dL (70-110)
--- NOTE | 2023-09-25 17:21 | ECG_ITS ---
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 Measurements Intervals [place] Rate: 85 P: 11 NE: 156 QRS: 78 QRSD: 96 T: -12 QT: 398 QTc: 475 Interpretive Statements SINUS RHYTHM LOW QRS VOLTAGE IN PRECORDIAL LEADS [QRS DEFLECTION < 1.0 mV IN CHEST LEADS] PATTERN CONSISTENT WITH PULMONARY DISEASE ABNORMAL QRS-T ANGLE [QRS-T AXIS DIFFERENCE > 60] Compared to ECG 09/25/2023 14:43:22 No significant changes Electronically Signed On 09-26-2023 9:34:44 CREDIT FRONT OFFICE DEVELOPER by Vazquez Contreras M.D. [id number]
[2023-09-25 20:31] LABS: Glucose Point of Care 123 mg/dL (70-110)
[2023-09-25 20:50] LABS: Troponin 5 6HR 28.86 ng/L (0-10); Troponin 5 6HR Delta 1.86 ng/L (0-12)
[2023-09-25] MEDS: gabapentin 100 mg Capsule PO (21:11)
[2023-09-26] VITALS (9 sets, daily range): BP systolic 126–167; BP diastolic 63–71; PULSE 68–79; RESP 18–20; TEMP 36.3–37.1; O2SAT 93–97
[2023-09-26] MEDS: sucralfate 1 gm/10 mL Oral Liq UDC PO ×4 (01:46→19:47)
[2023-09-26] MEDS: heparin 5,000 unit/mL INJ 1 mL 5000 UNIT SUBCUT ×2 (01:47→14:47)
[2023-09-26 02:31] LABS: Basophils % 0.2 %; Eosinophils # 0.3 10^3/uL (0.0-0.8); Eosinophils % 2.2 %; Lymphocytes # 1.9 10^3/uL (0.8-4.8); Lymphocytes % 14.9 %; Mean Corpuscular HGB Conc 32.8 g/dL (30-55); Mean Corpuscular Volume 79.4 fl (85-98); Mean Platelet Volume 10.2 fL (7.4-10.4); Monocytes # 0.8 10^3/uL (0.2-0.9); Monocytes % 6.4 %; Neutrophils # 9.58 10^3/uL (1.8-7.7); Neutrophils % 75.3 %; Nucleated Red Blood Cells % 0 %; Platelet Count 228 10^3/cmm (157-399); Red Blood Count 3.15 10^6/uL (3.85-5.65); White Blood Count 12.72 10^3/uL (3.29-11.43)
[2023-09-26 02:53] LABS: Alanine Aminotransferase 14 U/L (0-33); Albumin Level 2.6 g/dL (3.5-5.2); Alkaline Phosphatase 69 U/L (35-105); Anion Gap 13.6 (5-19); Aspartate Amino Transferase 17 U/L (0-32); Blood Urea Nitrogen 69 mg/dL (8-23); Calcium 7.5 mg/dL (8.5-10.5); Carbon Dioxide 24 mmol/L (22-29); Chloride 97 mmol/L (98-107); Creatinine Clr Calc Pharmacy 9.8294; Globulin 2.8 g/dL (1.3-4.6); Glucose 106 mg/dL (65-115); Osmolality Calculated 293 mOsm/kg (285-295); Phosphorus 4.9 mg/dL (2.5-4.5); Potassium 3.6 mmol/L (3.5-5.1); Sodium 131 mmol/L (136-145); Total Bilirubin 0.3 mg/dL (0.15-1.2); Total Protein 5.4 g/dL (6.6-8.7)
[2023-09-26 06:28] LABS: Glucose Point of Care 115 mg/dL (70-110)
[2023-09-26] MEDS: pantoprazole 40 mg SDV IVP ×2 (08:17→22:25)
[2023-09-26] MEDS: gabapentin 100 mg Capsule PO ×2 (08:18→17:04)
[2023-09-26] MEDS: amlodipine 10 mg Tablet PO (08:18)
[2023-09-26] MEDS: cloNIDine 0.1 mg Tablet 0.100000000000000006 MG PO ×2 (08:23→17:04)
--- NOTE | 2023-09-26 08:32 | PC.NURSE ---
Pt has been practicing basic orientation questions, according to brother who is in room. This nurse asks a different variety of orientation questions, and with those, she is only able to answer her name and . Unable to say how long ago Abhilash was, who the president is, etc.
--- NOTE | 2023-09-26 09:39 | P.PN_ITS ---
Subjective 2 Subjective: doing well Medications: Reviewed: Yes Vitals/I&O/Wt Last Vital Signs Temp 98.0 F 09/26/23 08:00 Pulse 76 09/26/23 08:00 Resp 20 H 09/26/23 08:00 BP 167/71 09/26/23 08:23 Pulse Ox 97 09/26/23 08:00 O2 Del Method Room Air 09/26/23 08:00 O2 Flow Rate 3 09/23/23 08:00 09/25/23 09/26/23 09/26/23 22:59 06:59 14:59 Intake Total 240 / 1487.5 Output Total 1475 / 1475 400 / 1875 Balance -1235 / 12.5 -400 / -387.5 Weight last 48 hrs Weight 75.75 kg Weight 81.817 kg Physical Exam 2 Narrative: awake , alert no distress no pedal edema flat affect s1 s2 RRR per report CLear bryon per report Urinary Catheter Management: Aly: Cath Placed During This Visit: yes Reason for Continuing Indwelling Catheter: Acute Urinary Retention or Obstruction Urinary Catheter Date of Insertion: 09/22/23 Urinary Catheter Time of Insertion: 12:06 Data 09/26/23 01:52 09/26/23 01:52 Micro: Microbiology 09/25/23 11:51 Stool Lactoferrin - Final Stool Occult Blood (FIT) - Final A&P Assessment and plan (1) Hyponatremia: (2) Acute kidney injury: Plan 1. Acute kidney injury: Baseline renal function not available, presented with a creatinine of 5.3 associated with hyponatremia metabolic acidosis --all likely from prerenal/possibly have developed ATN at this point. -No indication for dialysis currently, continue supportive care, -Cr improving - resume diuretics in 1-2 days -Avoid nephrotoxins and IV contrast studies. 2. Hyponatremia: Secondary to hypovolemia in the setting of poor p.o. intake, also patient was on HCTZ at home which is discontinued now. Will not restart at discharge. Continue IV fluids and monitor. Sodium improving 3. Metabolic acidosis:improved , s/p bicarbonate drip. 4. History of hypertension: Hold HCTZ and losartan, monitor 5. Anemia: Monitor 6. Gastroenteritis: Supportive care and management per primary team Patient evaluated using audiovisual cart. Time spent 20 minutes Attestations 2 Medical Necessity Statement*: per medicine Coding Level of Care Code Acute Code for Chg Fwd Diagnoses Hyponatremia E87.1 Acute kidney injury N17.9
[2023-09-26 10:57] LABS: Glucose Point of Care 129 mg/dL (70-110)
--- NOTE | 2023-09-26 11:16 | P.PN_ITS ---
Subjective 2 Subjective: Patient tells me that yesterday she had episodes of shortness of breath, lower extremity edema, bilaterally, she continues to have episodes of shortness of breath, the Aly catheter really bothers her getting up out of bed, her creatinine has improved to 4.6, we discussed trying a low-dose Lasix this evening to help with her fluid overload, her fluids have been stopped, she remains hypertensive so I have added on clonidine, I recommended for her to get another day of inpatient monitoring her BnP is up to 9700, fluids and Lasix some of her fluid overload will improve, however we will have to watch her creatinine and her serum sodium, she is agreeable Vitals/I&O/Wt Last Vital Signs Temp 98.0 F 09/26/23 08:00 Pulse 76 09/26/23 08:00 Resp 20 H 09/26/23 08:00 BP 167/71 09/26/23 08:23 Pulse Ox 97 09/26/23 08:00 O2 Del Method Room Air 09/26/23 08:00 O2 Flow Rate 3 09/23/23 08:00 09/25/23 09/26/23 09/26/23 22:59 06:59 14:59 Intake Total 240 / 1487.5 Output Total 1475 / 1475 400 / 1875 Balance -1235 / 12.5 -400 / -387.5 Weight last 48 hrs Weight 75.75 kg Weight 81.817 kg Physical Exam 2 Const: COMMON NORMALS: no acute distress and patient oriented x3 Resp: COMMON NORMALS: normal respiratory effort, No retractions and No use of accessory muscles AUSCULTATION: crackles Cardio: COMMON NORMALS: regular rate, regular rhythm, S1 normal heart sound present and S2 normal heart sound present RATE: regular rate RHYTHM: r egular rhythm HEART SOUNDS: S1 normal heart sound present and S2 normal heart sound present GI: COMMON NORMALS: Normal to inspection, nondistended, normoactive bowel sounds present and non-tender Extremity: OTHER: Bilateral 1+ pitting edema Neuro: COMMON NORMALS: patient oriented x3 Psych: COMMON NORMALS: mental status grossly normal Urinary Catheter Management: Aly: Cath Placed During This Visit: yes Reason for Continuing Indwelling Catheter: Acute Urinary Retention or Obstruction Urinary Catheter Date of Insertion: 09/22/23 Urinary Catheter Time of Insertion: 12:06 Data 09/26/23 01:52 09/26/23 01:52 Micro: Microbiology 09/25/23 11:51 Stool Lactoferrin - Final Stool Occult Blood (FIT) - Final A&P Assessment and plan (1) Acute kidney injury: Creatinine 4.6 This may have been precipitated by gastroenteritis, either way vomiting and diarrhea component of this as gone away Stool studies pending Urine output monitoring CT renal protocol demonstrates no evidence of obstruction Concomitant UTI may be present according to urinalysis Avoid renal toxic medications Continue hydration Urine did have eosinophils. Hold her home medications in case there is concern of interstitial nephritis Continue to follow closely for improvement with daily measurements of creatinine Nephrology consult today as creatinine has not improved CBC, CMP, magnesium level tomorrow (2) Hyponatremia: Significantly hyponatremic Monitor serum sodium Continue hydration as she appears to have hypovolemic hyponatremia. (3) UTI (urinary tract infection): Patient appears to have a UTI Urine culture pending Continue Rocephin 1 g IV every 24 hours (4) Proteinuria: Patient with significant proteinuria. Awaiting spot urine protein and creatinine Proteinuria could be secondary to nephrotic syndrome as patient's albumin is somewhat low, but could also be secondary to UTI Will go ahead and do urine electrophoresis serum protein electrophoresis (5) Anemia: Will be secondary to renal function Not iron deficient. Stool Hemoccult pending Continue Protonix, Carafate Consider follow-up with hematology as patient had renal failure and proteinuria. Electrophoresis studies pending (6) Acute encephalopathy: Possible uremic encephalopathy Possible associated UTI (7) Hypokalemia: Plan Hypomagnesemia. Supplement Multiple other medical problems outlined in past medical history Holding home medicines. Urine eosinophils positive Full code Heparin for DVT prophylaxis Due to fluid overload elevated BNP will give her 1 dose of Lasix, no recurrent chest pain, troponins as high as 28, no significant delta troponin, albumin is 2.6, will watch her kidney function monitor urine output monitor clinical status Attestations 2 Medical Necessity Statement*: Patient requires hospitalization for HAILEY, hyponatremia, with fluid overload requiring IV diuresis, UTI Diagnoses Acute kidney injury N17.9 Hyponatremia E87.1 UTI (urinary tract infection) N39.0 Proteinuria R80.9 Anemia D64.9 Acute encephalopathy G93.40 Hypokalemia E87.6
[2023-09-26] MEDS: cefTRIAXone 1,000 MG in sodium chloride 0.9% (plus) 50 ML 100 MG IV (11:30)
[2023-09-26 12:25] LABS: ALPHA 1 GLOBULIN 0.4 g/dL (0.2-0.3); ALPHA 2 GLOBULIN 0.6 g/dL (0.5-0.9); BETA 1 GLOBULIN 0.4 g/dL (0.4-0.6); BETA 2 GLOBULIN 0.4 g/dL (0.2-0.5); GAMMA GLOBULIN 0.7 g/dL (0.8-1.7)
[2023-09-26] MEDS: FUROsemide 10 mg/mL SDV 2mL 20 MG IVP (14:47)
[2023-09-26 17:01] LABS: Glucose Point of Care 155 mg/dL (70-110)
[2023-09-26] MEDS: insulin lispro 100 unit/1 mL SUBCUT (18:03)
[2023-09-26 20:44] LABS: Glucose Point of Care 104 mg/dL (70-110)
[2023-09-27] VITALS (9 sets, daily range): BP systolic 136–156; BP diastolic 63–71; PULSE 67–87; RESP 16–19; TEMP 36.4–36.6; O2SAT 93–96
[2023-09-27] MEDS: heparin 5,000 unit/mL INJ 1 mL 5000 UNIT SUBCUT ×2 (01:19→13:41)
[2023-09-27] MEDS: sucralfate 1 gm/10 mL Oral Liq UDC PO ×3 (01:19→13:41)
[2023-09-27 05:21] LABS: Basophils % 0.2 %; Eosinophils # 0.4 10^3/uL (0.0-0.8); Eosinophils % 3.3 %; Hematocrit 24.2 % (36-47); Lymphocytes % 23.4 %; Mean Corpuscular HGB Conc 32.6 g/dL (30-55); Mean Corpuscular Hemoglobin 26.3 pg (27-33); Mean Corpuscular Volume 80.7 fl (85-98); Mean Platelet Volume 10.5 fL (7.4-10.4); Monocytes # 0.9 10^3/uL (0.2-0.9); Monocytes % 6.8 %; Neutrophils # 8.49 10^3/uL (1.8-7.7); Neutrophils % 65.5 %; Nucleated Red Blood Cells % 0 %; Platelet Count 321 10^3/cmm (157-399); Red Cell Distribution Width 16.7 % (12.1-15.1); White Blood Count 12.98 10^3/uL (3.29-11.43)
[2023-09-27 06:03] LABS: Alanine Aminotransferase 15 U/L (0-33); Albumin Level 2.7 g/dL (3.5-5.2); Alkaline Phosphatase 74 U/L (35-105); Anion Gap 16.6 (5-19); Aspartate Amino Transferase 17 U/L (0-32); Blood Urea Nitrogen 63 mg/dL (8-23); Calcium 8.2 mg/dL (8.5-10.5); Carbon Dioxide 24 mmol/L (22-29); Chloride 97 mmol/L (98-107); Creatinine Clr Calc Pharmacy 9.1782; Glucose 116 mg/dL (65-115); Osmolality Calculated 297 mOsm/kg (285-295); Potassium 3.6 mmol/L (3.5-5.1); Sodium 134 mmol/L (136-145); Total Bilirubin 0.3 mg/dL (0.15-1.2); Total Protein 5.7 g/dL (6.6-8.7)
[2023-09-27 06:43] LABS: Glucose Point of Care 129 mg/dL (70-110)
[2023-09-27] MEDS: amlodipine 10 mg Tablet PO (08:31)
[2023-09-27] MEDS: cloNIDine 0.1 mg Tablet 0.100000000000000006 MG PO ×2 (08:31→17:32)
[2023-09-27] MEDS: gabapentin 100 mg Capsule PO ×2 (08:31→17:32)
[2023-09-27] MEDS: pantoprazole 40 mg SDV IVP (09:50)
[2023-09-27] MEDS: cefTRIAXone 1,000 MG in sodium chloride 0.9% (plus) 50 ML 100 MG IV (10:36)
--- NOTE | 2023-09-27 11:22 | PM.PN ---
Subjective Subjective: feels ok PO intake improved Medications: Reviewed: Yes Vitals/I&O/Wt Last Vital Signs Temp 97.8 F 09/27/23 08:00 Pulse 73 09/27/23 08:00 Resp 18 09/27/23 08:00 BP 145/66 09/27/23 08:31 Pulse Ox 96 09/27/23 08:00 O2 Del Method Room Air 09/27/23 08:00 O2 Flow Rate 3 09/23/23 08:00 09/26/23 09/27/23 09/27/23 22:59 06:59 14:59 Intake Total 50 / 50 Balance 50 / 50 Weight last 48 hrs Weight 77.791 kg Weight 75.75 kg Physical Exam Narrative: awake , alert no distress no pedal edema flat affect s1 s2 RRR per report CLear bryon per report Urinary Catheter Management: Aly: Cath Placed During This Visit: yes Reason for Continuing Indwelling Catheter: Acute Urinary Retention or Obstruction Urinary Catheter Date of Insertion: 09/22/23 Urinary Catheter Time of Insertion: 12:06 Data 09/27/23 04:23 09/27/23 04:23 A&P Assessment and plan (1) Hyponatremia: (2) Acute kidney injury: Plan 1. Acute kidney injury: Baseline renal function not available, presented with a creatinine of 5.3 associated with hyponatremia metabolic acidosis --all likely from prerenal/possibly have developed ATN at this point. -No indication for dialysis currently, continue supportive care, -Cr plateaud at 4.6-1.8 range, likely has advanced CKD , will cehck renal US to assess kidney sizes - resume diuretics in 1-2 days -Avoid nephrotoxins and IV contrast studies. 2. Hyponatremia: Secondary to hypovolemia in the setting of poor p.o. intake, also patient was on HCTZ at home which is discontinued now. Will not restart at discharge. Continue IV fluids and monitor. Sodium improving 3. Metabolic acidosis:improved , s/p bicarbonate drip. 4. History of hypertension: Hold HCTZ and losartan, monitor 5. Anemia: Monitor, ordereD MAGY 6. Gastroenteritis: Supportive care and management per primary team Patient evaluated using audiovisual cart. Time spent 20 minutes Attestations Medical Necessity Statement*: PER [facility] Coding Level of Care Code Acute Code for [facility] Diagnoses Hyponatremia E87.1 Acute kidney injury N17.9
--- NOTE | 2023-09-27 11:24 | US_ITS ---
WS: [id number] ULTRASOUND RENAL TECHNIQUE: Ultrasound examination of both kidneys. CLINICAL INFORMATION: HAILEY COMPARISON: None. FINDINGS: RIGHT: Right kidney is normal in size and appearance. Echogenicity: Normal. Cortical thickness: 1.3 cm; Normal. Hydronephrosis: None. Perinephric fluid: None. Right kidney measures: 11.3 cm x 5.0 cm x 4.5 cm. LEFT: Left kidney is normal in size and appearance. Echogenicity: Normal. Cortical thickness: 1.3 cm; Normal. Hydronephrosis: None. Perinephric fluid: None. Left kidney measures: 10.9 cm x 4.9 cm x 5.4 cm. Normal visualized aorta. IMPRESSION: 1. No hydronephrosis in either kidney. 2. Normal bladder. 3. Tiny simple RIGHT renal cyst measuring 7 mm
[2023-09-27 11:28] LABS: Glucose Point of Care 110 mg/dL (70-110)
[2023-09-27] MEDS: epoetin alfa 1000 Unit/0.05 mL (ESRD) 20000 UNIT SUBCUT (12:17)
[2023-09-27] MEDS: albumin 25 G/100 ML BAG 60 G IV ×2 (12:24→21:29)
--- NOTE | 2023-09-27 15:54 | P.PN_ITS ---
Subjective 2 Subjective: Patient was seen this morning, I had extensive discussion with her and her daughter and her at bedside, about her renal failure her creatinine remains 4.8, this might be her baseline kidney function, she might have CKD, as she has not had any evaluation of her kidney function in a long period of time, it could be CKD from diabetes hypertension, certainly there is also concern for interstitial nephritis, given her urine findings, certainly we could consider a renal biopsy at some point potentially as outpatient however she is not very keen on this, but creatinine of 4.8 with me that at some point she might need dialysis, due to fluid overload and electrolyte abnormalities, she needs to have quite close follow-up with her primary care and nephrology, she is also becoming anemic hemoglobin 7.9 likely from anemia of chronic disease, from renal insufficiency, her Hemoccult stool was negative, her iron studies are within normal limits I think this is likely from her renal insufficiency, we discussed her fluid overload and worried about letting her go home today with her creatinine, and her hemoglobin, patient would really like to go home, but was able to convince patient to stay another night for monitoring hemoglobin monitoring for fluid fluid overload monitoring creatinine, she is agreeable, spoke to nephrology, nephrology and I would recommend for patient to stay as inpatient nephrology agrees will get Epogen, albumin Vitals/I&O/Wt Last Vital Signs Temp 97.5 F L 09/27/23 11:42 Pulse 87 09/27/23 14:00 Resp 19 H 09/27/23 11:42 BP 139/63 09/27/23 11:42 Pulse Ox 95 09/27/23 11:42 O2 Del Method Room Air 09/27/23 11:42 O2 Flow Rate 3 09/23/23 08:00 09/27/23 09/27/23 09/27/23 06:59 14:59 22:59 Intake Total 510 / 510 Balance 510 / 510 Weight last 48 hrs Weight 77.791 kg Weight 75.75 kg Physical Exam 2 Const: COMMON NORMALS: no acute distress and patient oriented x3 Resp: COMMON NORMALS: normal respiratory effort, No retractions, No use of accessory muscles and clear to auscultation bilaterally AUSCULTATION: clear to auscultation bilaterally Cardio: COMMON NORMALS: regular rate, regular rhythm, S1 normal heart sound present and S2 normal heart sound present RATE: regular rate RHYTHM: r egular rhythm HEART SOUNDS: S1 normal heart sound present and S2 normal heart sound present GI: COMMON NORMALS: Normal to inspection, nondistended, normoactive bowel sounds present and non-tender Extremity: COMMON NORMALS: no pedal edema Neuro: COMMON NORMALS: patient oriented x3 Psych: COMMON NORMALS: mental status grossly normal Urinary Catheter Management: Aly: Cath Placed During This Visit: yes Reason for Continuing Indwelling Catheter: Acute Urinary Retention or Obstruction Urinary Catheter Date of Insertion: 09/22/23 Urinary Catheter Time of Insertion: 12:06 Data 09/27/23 04:23 09/27/23 04:23 A&P Assessment and plan (1) Acute kidney injury: Creatinine 4.8 This may have been precipitated by gastroenteritis, either way vomiting and diarrhea component of this as gone away Stool studies pending Urine output monitoring CT renal protocol demonstrates no evidence of obstruction Concomitant UTI may be present according to urinalysis Avoid renal toxic medications Continue hydration Urine did have eosinophils. Hold her home medications in case there is concern of interstitial nephritis Continue to follow closely for improvement with daily measurements of creatinine Nephrology consult today as creatinine has not improved CBC, CMP, magnesium level tomorrow (2) Hyponatremia: Significantly hyponatremic Monitor serum sodium Continue hydration as she appears to have hypovolemic hyponatremia. (3) UTI (urinary tract infection): Patient appears to have a UTI Urine culture pending Continue Rocephin 1 g IV every 24 hours, today last dose of IV antibiotics (4) Proteinuria: Patient with significant proteinuria. Awaiting spot urine protein and creatinine Proteinuria could be secondary to nephrotic syndrome as patient's albumin is somewhat low, but could also be secondary to UTI Will go ahead and do urine electrophoresis serum protein electrophoresis (5) Anemia: Will be secondary to renal function Not iron deficient. Stool Hemoccult negative ? Likely anemia chronic disease from renal insufficiency will give Epogen today Continue Protonix, Carafate Consider follow-up with hematology as patient had renal failure and proteinuria. Electrophoresis studies pending (6) Acute encephalopathy: Resolved Possible uremic encephalopathy Possible associated UTI (7) Hypokalemia: Plan Hypomagnesemia. Supplement Multiple other medical problems outlined in past medical history Holding home medicines. Urine eosinophils positive Full code Heparin for DVT prophylaxis Plan for today creatinine 4.8 monitor creatinine monitor urine output monitor fluid status does have anemia hemoglobin 7.9, will get Epogen, continue clinical monitoring as inpatient blood pressure monitoring Attestations 2 Medical Necessity Statement*: Patient requires hospitalization, inpatient, for anemia, anemia chronic disease related with renal failure acute renal failure fluid overload, UTI Diagnoses Acute kidney injury N17.9 Hyponatremia E87.1 UTI (urinary tract infection) N39.0 Proteinuria R80.9 Anemia D64.9 Acute encephalopathy G93.40 Hypokalemia E87.6
[2023-09-27 16:52] LABS: Glucose Point of Care 118 mg/dL (70-110)
[2023-09-27] MEDS: haloperidol inj 5 mg/mL INJ 1 mL 1 MG IM (18:40)
[2023-09-27] MEDS: acetaminophen 325 mg Tablet 650 MG PO (23:43)
[2023-09-28] VITALS (12 sets, daily range): BP systolic 128–169; BP diastolic 65–79; PULSE 65–80; RESP 15–20; TEMP 36.3–36.7; O2SAT 92–98
[2023-09-28 05:15] LABS: Basophils % 0.3 %; Eosinophils # 0.4 10^3/uL (0.0-0.8); Eosinophils % 3.1 %; Hematocrit 23.1 % (36-47); Lymphocytes # 2.4 10^3/uL (0.8-4.8); Lymphocytes % 20.3 %; Mean Corpuscular HGB Conc 31.6 g/dL (30-55); Mean Corpuscular Hemoglobin 26.3 pg (27-33); Mean Corpuscular Volume 83.1 fl (85-98); Mean Platelet Volume 10.1 fL (7.4-10.4); Monocytes # 0.9 10^3/uL (0.2-0.9); Monocytes % 7.2 %; Neutrophils # 8.15 10^3/uL (1.8-7.7); Neutrophils % 67.9 %; Nucleated Red Blood Cells % 0 %; Platelet Count 354 10^3/cmm (157-399); Red Blood Count 2.78 10^6/uL (3.85-5.65); Red Cell Distribution Width 16.9 % (12.1-15.1); White Blood Count 11.98 10^3/uL (3.29-11.43)
[2023-09-28 05:42] LABS: Albumin Level 3.3 g/dL (3.5-5.2); Chloride 100 mmol/L (98-107); Potassium 3.8 mmol/L (3.5-5.1); Sodium 136 mmol/L (136-145)
[2023-09-28 06:20] LABS: Alanine Aminotransferase 15 U/L (0-33); Alkaline Phosphatase 71 U/L (35-105); Anion Gap 18.8 (5-19); Aspartate Amino Transferase 18 U/L (0-32); Blood Urea Nitrogen 59 mg/dL (8-23); Calcium 8.7 mg/dL (8.5-10.5); Carbon Dioxide 21 mmol/L (22-29); Creatinine Clr Calc Pharmacy 10.7452; Globulin 2.9 g/dL (1.3-4.6); Glucose 117 mg/dL (65-115); Magnesium 2.1 mg/dL (1.7-2.3); Osmolality Calculated 300 mOsm/kg (285-295); Phosphorus 5.3 mg/dL (2.5-4.5); Total Bilirubin 0.3 mg/dL (0.15-1.2); Total Protein 6.2 g/dL (6.6-8.7)
--- NOTE | 2023-09-28 07:39 | PC.NURSE ---
Patient has been irritable and agitated all night. Patient refused evening and morning blood glucose checks.
--- NOTE | 2023-09-28 09:44 | CT_ITS ---
WS: [id number] CT HEAD TECHNIQUE: Noncontrast CT of the head obtained from the skullbase to the vertex. CLINICAL INFORMATION: ams COMPARISON: 09/22/2023 DLP: 1130.[address] scans at [facility] use at least one of these dose optimization techniques: automated e xposure control; mA and/or kV adjustment per patient size (includes targeted exams where dose is matc hed to clinical indication); or iterative reconstruction. FINDINGS: No evidence of intracranial hemorrhage or mass effect. Ventricular system and basal cisterns are farooq nt. Mild small vessel changes with moderate parenchymal volume loss. No extra-axial fluid collections . No evidence of mass or mass effect. Normal khan-white differentiation. Polypoid mucosal thickening in the LEFT frontal sinus with partial opacification of the frontoethmoid al recess. Mild mucosal thickening in the ethmoid air cells. Mastoid air cells are well aerated. IMPRESSION: 1. No evidence of intracranial hemorrhage or mass effect. 2. Mild small vessel changes with moderate parenchymal volume loss unchanged. 3. Intracranial vascular calcification. 4. 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 5. No other acute findings.
--- NOTE | 2023-09-28 09:44 | XRR_ITS ---
PROCEDURE INFORMATION: Exam: XR Chest Exam date and time: 09/28/2023 11:07 AM Age: 78 years old Clinical indication: Other: AMS. No history of recent trauma or surgery is provided. TECHNIQUE: Imaging protocol: Radiologic exam of the chest. 1image(s) are provided. Views: 1 view. COMPARISON: 1. CR (CHEST, ) 09/25/2023 12:20 PM 2. CR XR chest 1V portable [id number] 09/22/2023 9:[address] lung base report 09/22/2023. 3. CR XR chest 1V portable [id number] 09/22/2023 9:53 AM FINDINGS: Lungs: There is some patchy atelectatic consolidation of the lung bases appearing increased in the interval. No lobar type consolidation is otherwise appreciated. Pleural spaces: There is some small amount of pleural fluid blunting the costophrenic angles.No pneumothorax is appreciated. Heart/Mediastinum: The cardiomediastinal silhouette is upper normal in size.This can be seen with central averaging as well as thalia enlargement. This can also be seen with increased volume status, pulmonary hypertension. No cardiac decompensation is appreciated. Diaphragm: The hemidiaphragms are symmetric. Bones/joints: Osseous alignment is maintained. No interval displaced fracture or dislocation is appreciated. Soft tissues: No radiopaque foreign body or subcutaneous emphysema is appreciated. There are postsurgical chest wall changes present. Other findings: No other significant interval changes are appreciated. XR/XR chest 1V portable [id number] IMPRESSION: There is some patchy bibasilar inflammation developing with a small amount of pleural fluid blunting the costophrenic angles.
[2023-09-28] MEDS: gabapentin 100 mg Capsule PO ×2 (09:57→17:45)
[2023-09-28] MEDS: cloNIDine 0.1 mg Tablet 0.100000000000000006 MG PO ×2 (09:57→17:45)
[2023-09-28] MEDS: amlodipine 10 mg Tablet PO (09:57)
[2023-09-28 10:18] LABS: Erythrocyte Sedimentation Rate 26 mm/hr (0-15)
[2023-09-28 10:35] LABS: Procalcitonin 0.27 ng/mL (0-0.5)
[2023-09-28 10:54] LABS: C Reactive Protein 81.1 mg/L (0.0-4.9)
--- NOTE | 2023-09-28 11:03 | ECG_ITS ---
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 Measurements Intervals [place] Rate: 75 P: 37 [place]: 169 QRS: 13 QRSD: 92 T: 62 QT: 410 QTc: 460 Interpretive Statements SINUS RHYTHM Compared to ECG 09/25/2023 17:21:09 No significant changes Electronically Signed On 09-28-2023 14:33:27 JAVA ORACLE DEVELOPER by Uday Pryor M.D. [id number]
[2023-09-28] MEDS: venlafaxine ER (24HR) 75 mg Capsule PO (11:13)
[2023-09-28] MEDS: pantoprazole 40 mg SDV IVP (11:13)
[2023-09-28] MEDS: pramipexole 0.25 mg Tablet PO (11:13)
[2023-09-28 11:28] LABS: Glucose Point of Care 128 mg/dL (70-110)
[2023-09-28 11:41] LABS: Troponin(5th) Baseline 30 ng/L (0-10)
[2023-09-28] MEDS: albumin 25 G/100 ML BAG 60 G IV (11:46)
--- NOTE | 2023-09-28 11:52 | P.PN_ITS ---
Subjective 2 Subjective: Patient was seen this morning, granddaughter is at bedside throughout the night patient had episodes of agitation and confusion, this morning she is alert to person, not to place, not to time, she does not recognize she is in the hospital, she thinks at times can Dr. Dc, she does not know who I am, when I confronted her that I been seeing her for the last 4 days, she does not recognize this, she does not know why she is in the hospital, she becomes very easily agitated with granddaughter at bedside, she does not know why she is here in the hospital why she has been here for so long, denies any chest pain, no palpitations no facial droop no slurring of words, no focal weakness she has equal strength upper lower extremity she is able to follow commands, she has not slept throughout the night, I spoke to her granddaughter confirms she did sleep throughout the night, Vitals/I&O/Wt Last Vital Signs Temp 97.4 F L 09/28/23 07:51 Pulse 77 09/28/23 07:51 Resp 18 09/28/23 07:51 BP 128/79 09/28/23 07:51 Pulse Ox 96 09/28/23 07:51 O2 Del Method Room Air 09/28/23 07:51 O2 Flow Rate 3 09/23/23 08:00 09/27/23 09/28/23 09/28/23 22:59 06:59 14:59 Intake Total 240 / 750 100 / 850 25 / 25 Output Total 500 / 500 360 / 360 Balance 240 / 750 -400 / 350 -335 / -335 Weight last 48 hrs Weight 77.791 kg Weight 77.791 kg Physical Exam 2 Const: COMMON NORMALS: no acute distress ORIENTATION/CONSCIOUSNESS: Yes awake, Yes oriented to person and Yes confused; not oriented to place and not oriented to time Resp: COMMON NORMALS: normal respiratory effort, No retractions, No use of accessory muscles and clear to auscultation bilaterally AUSCULTATION: clear to auscultation bilaterally Cardio: COMMON NORMALS: regular rate, regular rhythm, S1 normal heart sound present and S2 normal heart sound present RATE: regular rate RHYTHM: r egular rhythm HEART SOUNDS: S1 normal heart sound present and S2 normal heart sound present GI: COMMON NORMALS: Normal to inspection, nondistended, normoactive bowel sounds present and non-tender Extremity: COMMON NORMALS: no pedal edema Neuro: COMMON NORMALS: CN's II-XII intact bilaterally, moves all extremities and no focal motor deficits SENSORIUM/ORIENTATION: Yes oriented to person, No oriented to place and No oriented to time Psych: COMMON NORMALS: mental status grossly normal Urinary Catheter Management: Aly: Cath Placed During This Visit: yes, but has since been removed by the nurse Reason for Continuing Indwelling Catheter: Decision to DC Catheter Urinary Catheter Date of Insertion: 09/22/23 Urinary Catheter Time of Insertion: 12:06 Date Urinary Catheter Removed: 09/27/23 Time Urinary Catheter Discontinued: 11:00 Data 09/28/23 04:17 09/28/23 04:17 Micro: Microbiology 09/28/23 10:45 Blood Culture - Preliminary Blood SPECIMEN COLLECTED 09/28/23 10:37 Blood Culture - Preliminary Blood SPECIMEN COLLECTED A&P Assessment and plan (1) Acute kidney injury: Creatinine 4.1 This may have been precipitated by gastroenteritis, either way vomiting and diarrhea component of this as gone away Stool studies pending Urine output monitoring CT renal protocol demonstrates no evidence of obstruction Concomitant UTI may be present according to urinalysis Avoid renal toxic medications Continue hydration Urine did have eosinophils. Hold her home medications in case there is concern of interstitial nephritis Continue to follow closely for improvement with daily measurements of creatinine Nephrology consult today as creatinine has not improved CBC, CMP, magnesium level tomorrow (2) Hyponatremia: Significantly hyponatremic Monitor serum sodium Continue hydration as she appears to have hypovolemic hyponatremia. (3) UTI (urinary tract infection): Completed antibiotic therapy (4) Proteinuria: Patient with significant proteinuria. Awaiting spot urine protein and creatinine Proteinuria could be secondary to nephrotic syndrome as patient's albumin is somewhat low, but could also be secondary to UTI Will go ahead and do urine electrophoresis serum protein electrophoresis (5) Anemia: Will be secondary to renal function Not iron deficient. Stool Hemoccult negative ? Likely anemia chronic disease from renal insufficiency will give Epogen yesterday, hemoglobin 7.3 transfuse 1 unit PRBC Continue Protonix, Carafate Consider follow-up with hematology as patient had renal failure and proteinuria. Electrophoresis studies pending (6) Acute encephalopathy: Encephalopathy this morning, alert to person, not to place, not to time, no focal neurologic deficits no slurring of her words -CT head, repeat UA, chest x-ray, Pro-Enrique, CRP, urinalysis Potentially sundowning, prolonged hospitalization Potentially withdrawing from venlafaxine pramipexole resume Potentially withdrawing from gabapentin, 300 mg 3 times daily, cannot resume as patient is in renal failure Other possibilities include uremic encephalopathy Neurochecks, NIH stroke scale, Ativan, Haldol for agitation (7) Hypokalemia: Plan Hypomagnesemia. Supplement Multiple other medical problems outlined in past medical history Holding home medicines. Urine eosinophils positive Full code Heparin for DVT prophylaxis Plan for today hemoglobin 7.3 transfuse 1 unit PRBC, creatinine 4.1 monitor, acute encephalopathy requiring workup and monitoring as inpatient Attestations 2 Medical Necessity Statement*: Patient requires hospitalization, for acute renal failure anemia now with acute encephalopathy Diagnoses Acute kidney injury N17.9 Hyponatremia E87.1 UTI (urinary tract infection) N39.0 Proteinuria R80.9 Anemia D64.9 Acute encephalopathy G93.40 Hypokalemia E87.6
[2023-09-28 12:40] LABS: Troponin 5 2HR 27.53 ng/L (0-10); Troponin 5 2HR Delta -2.47 ABS# (0-10)
[2023-09-28] MEDS: acetaminophen 325 mg Tablet 650 MG PO (15:25)
--- NOTE | 2023-09-28 15:36 | PC.NURSE ---
pts family concerned abt pts restless legs, notified, dr will order requip. pts family updated with plan. educ on risks of meds r/t kidney function and mentation. also educ on anemia can cause legs to be restless. pts granddaughter then stated we just want to take her home, we will worry abt her meds, i was like a nurse in the [employer]. I educ pts family that at this point i did not have d/c orders and that she would have to leave ama. Pts granddaughter then stated, No! we aren't want to leave ama. Will she be discharged tomorrow? I informed her that the plan was to d/c tomorrow, unless pts condition changed. She then stated we will want to transfer if she isn't d/c tomorrow morning. notified and made aware of the situation.
--- NOTE | 2023-09-28 15:46 | ECG_ITS ---
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 Measurements Intervals [place] Rate: 70 P: 47 [place]: 175 QRS: 11 QRSD: 92 T: 66 QT: 403 QTc: 436 Interpretive Statements SINUS RHYTHM NONSPECIFIC T-WAVE ABNORMALITY Compared to ECG 09/28/2023 11:03:00 T-wave abnormality now present Electronically Signed On 09-29-2023 14:52:19 ACCOUNTS RECEIVABLE ASSISTANT by Vazquez Contreras M.D. [id number]
[2023-09-28] MEDS: morphine 4 mg/mL SDV 1 mL 1 MG IVP (16:16)
[2023-09-28] MEDS: ropinirole 0.25 mg Tablet PO (16:16)
[2023-09-28 16:47] LABS: Glucose Point of Care 126 mg/dL (70-110)
--- NOTE | 2023-09-28 17:13 | PC.NURSE ---
at approx. 1615 pt was given ivp morphine, iv was flushed successfully before and after administration of medication. blood was restarted after iv flushed successfully. at approx. 1650 pts us guided iv infiltrated, iv was stopped immediately. notified of infiltration. pts family refused another iv. educ pts family on benefits of having working iv and risks of not having 1.
[2023-09-28] MEDS: doxycycline 100 mg Tablet PO (17:45)
[2023-09-28] MEDS: cefdinir 300 MG CAPSULE PO (17:57)
--- NOTE | 2023-09-28 20:29 | P.PN_ITS ---
Subjective 2 Subjective: confused Medications: Reviewed: Yes Vitals/I&O/Wt Last Vital Signs Temp 97.5 F L 09/28/23 19:26 Pulse 70 09/28/23 19:26 Resp 16 09/28/23 19:26 BP 129/69 09/28/23 19:26 Pulse Ox 92 09/28/23 19:26 O2 Del Method Room Air 09/28/23 16:00 O2 Flow Rate 3 09/23/23 08:00 09/28/23 09/28/23 09/28/23 06:59 14:59 22:59 Intake Total 100 / 850 505 / 505 100 / 605 Output Total 500 / 500 360 / 360 Balance -400 / 350 145 / 145 100 / 245 Weight last 48 hrs Weight 77.791 kg Weight 77.791 kg Physical Exam 2 Narrative: confused , no distress Urinary Catheter Management: Aly: Cath Placed During This Visit: yes, but has since been removed by the nurse Reason for Continuing Indwelling Catheter: Decision to DC Catheter Urinary Catheter Date of Insertion: 09/22/23 Urinary Catheter Time of Insertion: 12:06 Date Urinary Catheter Removed: 09/27/23 Time Urinary Catheter Discontinued: 11:00 Data 09/28/23 04:17 09/28/23 04:17 Micro: Microbiology 09/25/23 11:51 E. coli Shiga-like Toxin (PCR) - Final Stool Campylobacter (PCR) - Final 09/28/23 10:45 Blood Culture - Preliminary Blood SPECIMEN COLLECTED 09/28/23 10:37 Blood Culture - Preliminary Blood SPECIMEN COLLECTED A&P Assessment and plan (1) Hyponatremia: (2) Acute kidney injury: Plan 1. Acute kidney injury: Baseline renal function not available, presented with a creatinine of 5.3 associated with hyponatremia metabolic acidosis --all likely from prerenal/possibly have developed ATN at this point. -No indication for dialysis currently, continue supportive care, -Cr plateaud at 4 range , likely has advanced CKD , - resume diuretics -Avoid nephrotoxins and IV contrast studies. 2. Hyponatremia: Secondary to hypovolemia in the setting of poor p.o. intake, also patient was on HCTZ at home which is discontinued now. Will not restart at discharge. Continue IV fluids and monitor. Sodium improving 3. Metabolic acidosis:improved , s/p bicarbonate drip. 4. History of hypertension: Hold HCTZ and losartan, monitor 5. Anemia: Monitor, ordereD MAGY 6. Gastroenteritis: Supportive care and management per primary team Patient evaluated using audiovisual cart. Time spent 20 minutes Attestations 2 Medical Necessity Statement*: per prakash Coding Level of Care Code Acute Code for Chg Fwd Diagnoses Hyponatremia E87.1 Acute kidney injury N17.9
[2023-09-29 06:34] VITALS: BMI 31.4
[2023-09-29 07:35] LABS: Basophils % 0.4 %; Eosinophils # 0.4 10^3/uL (0.0-0.8); Eosinophils % 3.5 %; Hematocrit 22.8 % (36-47); Lymphocytes # 1.8 10^3/uL (0.8-4.8); Lymphocytes % 15.7 %; Mean Corpuscular HGB Conc 31.6 g/dL (30-55); Mean Corpuscular Hemoglobin 26.5 pg (27-33); Mean Corpuscular Volume 83.8 fl (85-98); Mean Platelet Volume 9.1 fL (7.4-10.4); Monocytes # 0.6 10^3/uL (0.2-0.9); Monocytes % 5.6 %; Neutrophils % 73.6 %; Nucleated Red Blood Cells % 0 %; Platelet Count 380 10^3/cmm (157-399); Red Blood Count 2.72 10^6/uL (3.85-5.65); Red Cell Distribution Width 16.9 % (12.1-15.1); White Blood Count 11.13 10^3/uL (3.29-11.43)
[2023-09-29 08:03] LABS: Alanine Aminotransferase 16 U/L (0-33); Albumin Level 3.1 g/dL (3.5-5.2); Alkaline Phosphatase 70 U/L (35-105); Anion Gap 19.5 (5-19); Aspartate Amino Transferase 16 U/L (0-32); Blood Urea Nitrogen 50 mg/dL (8-23); Calcium 8.8 mg/dL (8.5-10.5); Carbon Dioxide 21 mmol/L (22-29); Chloride 100 mmol/L (98-107); Creatinine Clr Calc Pharmacy 11.9104; Glucose 111 mg/dL (65-115); Magnesium 2.1 mg/dL (1.7-2.3); Osmolality Calculated 298 mOsm/kg (285-295); Phosphorus 6.1 mg/dL (2.5-4.5); Potassium 3.5 mmol/L (3.5-5.1); Sodium 137 mmol/L (136-145); Total Bilirubin 0.3 mg/dL (0.15-1.2); Total Protein 6.1 g/dL (6.6-8.7)
[2023-09-29 08:04] LABS: Troponin 5 6HR 22.47 ng/L (0-10)
[2023-09-29 08:06] LABS: Troponin 5 6HR Delta -7.53 ng/L (0-12)
[2023-09-29 08:27] LABS: Glucose Point of Care 115 mg/dL (70-110)
[2023-09-29] MEDS: cloNIDine 0.1 mg Tablet 0.100000000000000006 MG PO (09:00)
[2023-09-29] MEDS: gabapentin 100 mg Capsule PO (09:00)
[2023-09-29] MEDS: venlafaxine ER (24HR) 75 mg Capsule PO (09:01)
[2023-09-29] MEDS: amlodipine 10 mg Tablet PO (09:01)
--- NOTE | 2023-09-29 09:15 | CT_ITS ---
WS: [id number] CT HEAD TECHNIQUE: Noncontrast CT of the head obtained from the skullbase to the vertex. CLINICAL INFORMATION: stroke COMPARISON: 09/28/2023 DLP: 1329.[address] scans at [facility] use at least one of these dose optimization techniques: automated e xposure control; mA and/or kV adjustment per patient size (includes targeted exams where dose is matc hed to clinical indication); or iterative reconstruction. FINDINGS: No evidence of intracranial hemorrhage or mass effect. Ventricular system and basal cisterns are farooq nt. Mild small vessel changes with moderate parenchymal volume loss. No extra-axial fluid collections . No evidence of mass or mass effect. Intracranial vascular calcification. Small chronic lacunar infa rct RIGHT external capsule. Mild mucosal thickening in the paranasal sinuses. Mastoid air cells are well aerated. IMPRESSION: 1. No evidence of intracranial hemorrhage or mass effect. 2. Mild small vessel changes with moderate parenchymal volume loss. 3. No acute intracranial findings and no significant change from previous. Discussed with Chau Hess MD at 09/29/2023 9:39 AM.
[2023-09-29 09:19] LABS: Glucose Point of Care 125 mg/dL (70-110)
--- NOTE | 2023-09-29 09:27 | MR_ITS ---
WS: [id number] MRA ANGIOGRAPHY [place] HISTORY: cva COMPARISON: CT head noncontrast 09/29/2023 TECHNIQUE: 3-D MR angiography is performed of the [place]. All images are reviewed including source images. Distal vertebral arteries are both patent. RIGHT vertebral artery is smaller caliber than the LEFT. B asilar artery is normal caliber. No aneurysm. Posterior cerebral arteries are both identified and nor mal. Posterior communicating cerebral arteries are poorly visualized predominately due to the motion artifact. Intracranial portion of the internal carotid arteries are normal course and caliber. No significant a therosclerosis, stenosis or aneurysm identified. Middle and anterior cerebral arteries are both paten t with no significant disease. RIGHT MCA appears slightly more robust than the LEFT but there are no occlusions. This is probably a normal variant for this patient. Anterior communicating artery is also normal. IMPRESSION: 1. No high-grade stenosis or filling defects within the [place]. 2. Small caliber RIGHT MCA but it is patent.
--- NOTE | 2023-09-29 09:27 | MR_ITS ---
WS: [id number] MRI BRAIN WITHOUT CONTRAST HISTORY: encephalopathy COMPARISON: CT head 09/29/2023 TECHNIQUE: Diffusion imaging, multiplanar T1, T2 and FLAIR imaging obtained. No evidence for acute infarct or hemorrhage. Mendez-white matter differentiation is normal. Mild to moderate atrophy and volume loss and mild small vessel ischemic disease. No acute acute or re mote infarcts. No hemorrhage. Tiny lacunar infarct in the RIGHT basal ganglia. Ventricles and extra-axial spaces are normal. No inferior displacement of cerebellar tonsils. The sella turcica and pituitary gland are unremarkabl e. Flow voids are difficult to visualize due to motion and fast scan technique but do appear intact. Paranasal sinuses: Clear. Mastoid air cells: Normal. Calvarium and scalp: Intact. IMPRESSION: 1. No acute infarct. Diffusion imaging is normal. 2. No hemorrhage. 3. Mild to moderate atrophy and small vessel ischemic disease. Notified Chau Hess MD at 09/29/2023 10:34 AM.
[2023-09-29 09:38] LABS: ABG PCO2 35.7 mmHg (35-45); ABG PH Result 7.42 (7.35-7.45); Alveolar-Arterial Oxygen Gradi 5.4 mmHg (5-10); Arterial Blood Gas Hematocrit 24.5 % (37-47); Base Excess ABG -1.4 mmol/L (-2.0-2.0); Blood Gas Allen Test Pos; Blood Gas Operator Identificat glc; Blood Gas Sample Site Radial, right; Blood Gas Sample Type Arterial; Carboxyhemoglobin 1.1 %THgb (0.4-20.1); HCO3 ABG 22.9 mmol/L (22-26); HGB O2 Sat 91.4 % (95-100); Ionized Calcium Level - ABG 1.3 mmol/L (1.1-1.4); Methemoglobin 0.7 % (0.4-1.5); Oxygen Device ROOM AIR; Oxygen Saturation ABG 93.1; PO2 ABG 63.4 mmHg (80.0-100.0); PO2 FiO2 Ratio Arterial Blood 0; Potassium Level - ABG 3.4 mmol/L (3.5-5.0)
[2023-09-29 09:52] LABS: Lactate Dehydrogenase 323 U/L (135-214)
--- NOTE | 2023-09-29 09:58 | P.PN_ITS ---
Subjective 2 Subjective: pt confused Medications: Reviewed: Yes Vitals/I&O/Wt Last Vital Signs Temp 97.7 F 09/29/23 16:15 Pulse 73 09/29/23 16:15 Resp 17 09/29/23 16:15 BP 134/63 09/29/23 16:15 Pulse Ox 94 09/29/23 16:15 O2 Del Method Nasal Cannula 09/29/23 15:39 O2 Flow Rate 3 09/23/23 08:00 Weight last 48 hrs Weight 77.836 kg Weight 77.791 kg Physical Exam 2 Narrative: confused , no distress Urinary Catheter Management: Aly: Cath Placed During This Visit: yes, but has since been removed by the nurse Reason for Continuing Indwelling Catheter: Decision to DC Catheter Urinary Catheter Date of Insertion: 09/22/23 Urinary Catheter Time of Insertion: 12:06 Date Urinary Catheter Removed: 09/27/23 Time Urinary Catheter Discontinued: 11:00 Data 09/29/23 07:23 09/29/23 07:23 Micro: Microbiology 09/28/23 10:45 Blood Culture - Preliminary Blood NEGATIVE TO DATE 09/28/23 10:37 Blood Culture - Preliminary Blood NEGATIVE TO DATE 09/25/23 11:51 E. coli Shiga-like Toxin (PCR) - Final Stool Campylobacter (PCR) - Final A&P Assessment and plan (1) Hyponatremia: (2) Acute kidney injury: Plan 1. Acute kidney injury: Baseline renal function not available, presented with a creatinine of 5.3 associated with hyponatremia metabolic acidosis --all likely from prerenal/possibly have developed ATN at this point. -No indication for dialysis currently, continue supportive care, -Cr improved , likely has advanced CKD , - resume diuretics -Avoid nephrotoxins and IV contrast studies. 2. Hyponatremia: Secondary to hypovolemia in the setting of poor p.o. intake, also patient was on HCTZ at home which is discontinued now. Will not restart at discharge. Continue IV fluids and monitor. Sodium improving 3. Metabolic acidosis:improved , s/p bicarbonate drip. 4. History of hypertension: Hold HCTZ and losartan, monitor 5. Anemia: Monitor, ordereD MAGY 6. Gastroenteritis: Supportive care and management per primary team 7. metabolic encephalopathy Patient evaluated using audiovisual cart. Time spent 20 minutes Attestations 2 Medical Necessity Statement*: per mediicne Coding Level of Care Code Acute Code for Chg Fwd Diagnoses Hyponatremia E87.1 Acute kidney injury N17.9
--- NOTE | 2023-09-29 10:33 | XR_ITS ---
WS: [id number] Portable AP upright chest, 09/29/2023 Clinical Data: sob Comparison: Portable chest, 09/28/2023 Findings: The patchy bibasilar opacities remain the same. Again there may be a small right and left p leural effusion. No nodules, masses or effusions are seen. The heart is normal. The pulmonary vascula rity is not increased. No pneumonia or pneumothorax is seen. The aortic arch shows calcification and tortuosity. There are surgical clips in the right axilla. Impression: 1. No change in patchy bibasilar opacities with small bilateral effusions. 2. Atherosclerosis.
[2023-09-29 10:55] LABS: Glucose Point of Care 121 mg/dL (70-110)
[2023-09-29 11:22] LABS: LAB Peripheral Smear Sent for Review
[2023-09-29 11:33] VITALS: BP 159/68; PULSE 82; RESP 17; TEMP 36.3; O2SAT 91
[2023-09-29 12:03] LABS: Urine Appearance Clear (CLEAR); Urine Color Yellow (Yellow)
[2023-09-29 12:04] LABS: Add Urine Microscopic? YES; Bilirubin Urine Neg (Negative); Blood Urine 2+ (Negative); Glucose Urine UA Norm (Normal); Ketones Urine Negative (Negative); Leukocyte Esterase Urine Negative (Negative); Nitrate Urine Negative (Negative); Protein Urine 3+ (Negative); Urobilinogen Urine Norm (Negative); pH Urine 6 (5-7)
[2023-09-29] MEDS: pramipexole 0.25 mg Tablet PO (12:24)
[2023-09-29 12:33] LABS: Add Urine Culture? No; Amorphous Sediment Urine TRACE /hpf; Bacteria Urine TRACE /hpf; Fine Granular Casts Urine 0-4 /lpf; Hyaline Casts Urine 0-4 /lpf; Mucus Urine 1+ /hpf; RBC Urine 0-4 /hpf (0-2); Squamous Epithelial Cell Urine 0-4 /hpf (0-5); Transitional Epi Cells Urine 0-4 /hpf
--- NOTE | 2023-09-29 13:11 | P.PN_ITS ---
Subjective 2 Subjective: - Critical care progress note -Yesterday afternoon I met with family fernie marion times, yesterday she was seen sitting up in a chair alert to person, to place, not to time she was very agitated, she wanted to go home, -Patient's IV had infiltrated multiple t imes, and she was working on her first unit of blood, only about 100 mL had influenced before her complaints of IV burning, patient's family did not want IV to be replaced ? Discussed her hemoglobin is 7.2 her complaints of severe restless leg, neuropathy, likely secondary to her anemia, the only fix for this would be to give her hemoglobin, as this is likely her why she is having a restless leg I have to keep the gap at Martha dose at 100 twice daily given her creatinine clearance, risk of morbidity mortality with gabapentin toxicity ? In the evening yesterday family was very adamant and that they wanted to take her home, however she is alert to person, not to place, to time agitated at times with me screaming and yelling that she wanted to go home I advised the family that they certainly could take her home potentially she is encephalopathy from her prolonged hospitalization, however I need to make sure that there is no medical etiology behind this, I repeated the head CT in the morning which was within normal limits,, repeat blood work besides the anemia and the renal failure is within normal limits I recommended an inpatient stay, next ?however patient's family, patient refused IV discussed morbidity and mortality, they voiced understanding, all Qs answered, only about 100 mL of the blood transfused, some of it ended up in the subcutaneous tissues, most of the blood was not transfused unfortunately -next?patient's family was adamant that patient will be discharged early in the morning, ? Overnight, no febrile events, overnight she did get morphine she got Xanax as she was complaining of severe restless leg syndrome and the blood had not transfused I gave her 1 dose of Requip, ? Patient was seen early this morning her family members are at bedside she is alert to person, not to place, not to time, she has a dazed confused look, globally encephalopathic almost as if she is locked-in, she can track me left or right, but does not move upper or lower extremities, my immediate concern was for possible encephalopathy related to polypharmacy, patient's family tells me that she had slept throughout the night but this morning, she is less responsive, she has global aphasia, no facial droop at that I could see she has upper and lower extremity weakness I have calculated her NIH stroke scale to be 15-17 which is difficult to assess given her global symptoms she has not had any telemetry events, ? Her blood sugar was 120, and a stroke scale 15-17, she was put in Trendelenburg position, concern for possible basilar artery occlusion given her global symptoms ? Immediately concern for stroke, stroke code was called roughly 9 AM, patient was taken immediately to head spoke to radiologist, was within normal limits ? Spoke to neurology Dr. Rosales, given her global symptoms, the immediate concern was possible basilar artery occlusion, however encephalopathy secondary to polypharmacy infection was a possible etiology, given her creatinine could not give first contrast for CTA, decided with the help of neurology to proceed with MRI/MRA -After speaking with Dr. Rosales, neuro logy, symptoms were thought to be more global, more related to encephalopathy possibly related to toxic encephalopathy related to polypharmacy, possible infection possible electrolyte abnormalities she did not qualify for tPA ? Before her MRI, she was assessed, she is now able to raise both arms to raise both legs, she is able to track me she is able to yellow out a few words, she looks very agitated, but still encephalopathic almost as if she is locked and she is trying to say a few words, but she cannot, concern for possible productive aphasia, and or receptive aphasia -MRI performed IMPRESSION: 1. No acute infarct. Diffusion imaging is normal. 2. No hemorrhage. 3. Mild to moderate atrophy and small v essel ischemic disease. MRA performed IMPRESSION: 1. No high-grade stenosis or filling de fects within the [place]. 2. Small caliber RIGHT MCA but it is pa tent. ? Neurology assessed patient, they felt that the symptoms were less likely to be associated with vascular occlusion, vascular etiology or strokelike symptoms if they felt that symptoms were more global does not qualify for tPA or any endovascular procedure, recommended further workup for infectious etiology possible electrolyte abnormalities possible polypharmacy ? Patient was reassessed with nursing staff at bedside she is alert to person, to place, not to time she keeps screaming and yelling and becoming very agitated that she wants to go home she starts kicking at the bed telling me that she wants to go home and that she does not want to stay in the here in the hospital she keeps making a fist banging on her bed thrashing her head [id number] with family members at bedside ? Family was at bedside were able to calm her, ? She refuses an IV so it is possible for me to give her further fluids or any blood, or any antibiotics ? Family's do not want her to have an IV in the ? We did discuss a PICC line or midline placement however given her current agitation, I am worried that she might rip out IV or not tolerate its placement, and place herself at a greater risk of complications, will try to avoid IV placement for now as she is very agitated she keeps telling me and her family that she wants to go home ? On examination she has good and equal bilateral upper and lower extremity strength, she is able to track me she is able to say a few words alert to person, to place, not to time, she can follow some commands such as squeezing my fingers smiling for her for me, but beyond that becomes very agitated with any questioning although she keeps yelling at me that she wants to go home ? I did detailed discussion with family that I think that she is suffering from toxic encephalopathy etiology could be polypharmacy from gabapentin because on examination I did not notice a couple of twitching of her extremities specially her left hand, however her dose of gabapentin had been decreased to 100 twice daily certainly we can increase the dose to 100 3 times daily as she has complaints of severe restless leg syndrome but I am worried about polypharmacy she did get Requip last night she got Xanax and then she also received pain medication ? I checked an ABG and it was within normal limits ? Her urinalysis within normal limits her electrolytes besides her hemoglobin at being 7.2 is within normal limits however she would refuse any blood at this point ? I did detailed discussion with family that patient's Shiga toxins were positive in her stool, I think that what she likely developed was an E. coli 777502 infection resulting in diarrhea, from poorly cooked red meat, she likely had diarrhea from this and when she came in the concern was for possible UTI as a explanation for encephalopathy in addition to her dehydration ? 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 However her kidney function is getting better she has developed anemia some component related to hemolytic uremic syndrome and the other possibility is that it could be from her renal failure however she refuses blood she has received Epogen ? Her hemolytic labs her LDH is high Haptoglobin is within normal limits it is not low, her peripheral smear is pending ? She is out of the prodromal phase I think it would be safe to give her antibiotics but I would give it cautiously as the worse concern for worsening hemolytic uremic syndrome although I think she is over most of it except the anemia which has to be monitored closely ? I have ordered a chest x-ray yesterday showed focal infiltrates of bilateral lower lobes however she has remained afebrile she is not requiring any oxygen, she does not have any significant leukocytosis I do not necessarily give her antibiotics, UA is within normal limits ? Blood cultures are within normal limits, ? I had a detailed discussion with patient's family patient's family really wants to try to take her home, however my concern is in her current state she is alert to person, to place not to time she can follow some commands but becomes very easily agitated, she is remained in bed her this morning, we will need to get her up out of bed, monitor her ? I recommend inpatient monitoring, neurochecks, NIH stroke scale following her cultures, following her electrolytes following her hemoglobin making sure that there is no other reasons for her toxic encephalopathy possible a trial of antibiotics if her culture showed some positivity or if her mentation does not get any better or potentially worse However family members are at bedside are quite adamant about taking her home, I am worried about her current agitation and encephalopathy, taking her home in this condition certainly would carry significant risk of morbidity or mortality, if there is something nefarious going on certainly could result in morbidity mortality if she were to go home, my also concern is for her being adequately monitored, at home and I would recommend inpatient stay however patient's family is adamant about her potentially going home in the afternoon, ? My plan is to continue to monitor mentation, have PT OT work with her, if her mentation remained stable, and if she can ambulate we can see about her getting home and we can have her closely follow-up with Dr. Dc tomorrow or potentially Tuesday however if her mentation remains depressed I would have to keep her and I would strongly recommend for her to stay here in the hospital unless they left AGAINST MEDICAL ADVICE ? Certainly she could be developing encephalopathy sundowning from prolonged hospitalization is certainly an etiology however I want to do my due diligence to make sure that there is nothing reversible going on and family is understanding however they do still want to really take her home, as they feel that taking her home will bring her back to her regular environment and her mentation might improve Vitals/I&O/Wt Last Vital Signs Temp 97.4 F L 09/29/23 11:33 Pulse 82 09/29/23 11:33 Resp 17 09/29/23 11:33 BP 159/68 09/29/23 11:33 Pulse Ox 91 09/29/23 11:33 O2 Del Method Room Air 09/28/23 16:00 O2 Flow Rate 3 09/23/23 08:00 09/28/23 09/29/23 09/29/23 22:59 06:59 14:59 Intake Total 100 / 605 Balance 100 / 245 Weight last 48 hrs Weight 77.836 kg Weight 77.791 kg Physical Exam 2 Const: COMMON NORMALS: no acute distress Resp: COMMON NORMALS: normal respiratory effort, No retractions, No use of accessory muscles and clear to auscultation bilaterally AUSCULTATION: clear to auscultation bilaterally Cardio: COMMON NORMALS: regular rate, regular rhythm, S1 normal heart sound present and S2 normal heart sound present RATE: regular rate RHYTHM: r egular rhythm HEART SOUNDS: S1 normal heart sound present and S2 normal heart sound present GI: COMMON NORMALS: Normal to inspection, nondistended, normoactive bowel sounds present and non-tender Extremity: COMMON NORMALS: no pedal edema Psych: COMMON NORMALS: mental status grossly normal Urinary Catheter Management: Aly: Cath Placed During This Visit: yes, but has since been removed by the nurse Reason for Continuing Indwelling Catheter: Decision to DC Catheter Urinary Catheter Date of Insertion: 09/22/23 Urinary Catheter Time of Insertion: 12:06 Date Urinary Catheter Removed: 09/27/23 Time Urinary Catheter Discontinued: 11:00 Data 09/29/23 07:23 09/29/23 07:23 Micro: Microbiology 09/28/23 10:45 Blood Culture - Preliminary Blood NEGATIVE TO DATE 09/28/23 10:37 Blood Culture - Preliminary Blood NEGATIVE TO DATE 09/25/23 11:51 E. coli Shiga-like Toxin (PCR) - Final Stool Campylobacter (PCR) - Final A&P Assessment and plan (1) Acute kidney injury: Creatinine 3.7 likely dehydration and HUS This may have been precipitated by gastroenteritis, either way vomiting and diarrhea component of this as gone away Stool studies pending Urine output monitoring CT renal protocol demonstrates no evidence of obstruction Concomitant UTI may be present according to urinalysis Avoid renal toxic medications Continue hydration Urine did have eosinophils. Hold her home medications in case there is concern of interstitial nephritis Continue to follow closely for improvement with daily measurements of creatinine Nephrology consult today as creatinine has not improved CBC, CMP, magnesium level tomorrow (2) Hyponatremia: resolved Monitor serum sodium Continue hydration as she appears to have hypovolemic hyponatremia. (3) UTI (urinary tract infection): Completed antibiotic therapy (4) Proteinuria: Patient with significant proteinuria. Awaiting spot urine protein and creatinine Proteinuria could be secondary to nephrotic syndrome as patient's albumin is somewhat low, but could also be secondary to UTI Will go ahead and do urine electrophoresis serum protein electrophoresis (5) Anemia: Will be secondary to renal function, hemolytic uremic syndrome Not iron deficient. Stool Hemoccult negative ? Likely anemia chronic disease from renal insufficiency will give Epogen yesterday, hemoglobin 7.3 transfuse 1 unit PRBC Continue Protonix, Carafate Consider follow-up with hematology as patient had renal failure and proteinuria. Electrophoresis studies pending (6) Acute encephalopathy: Encephalopathy this morning, alert to person, not to place, not to time, no focal neurologic deficits no slurring of her words -Concerns for toxic versus metabolic encephalopathy -CT head, within normal limits, MRI brain within normal limits, MRA head and neck within normal limits Potentially ing, prolonged hospitalization Potentially withdrawing from venlafaxine pramipexole resume Potentially withdrawing from gabapentin, 300 mg 3 times daily, cannot resume as patient is in renal failure, currently on gabapentin 100 mg 3 times daily, ? Continue modafinil Other possibilities include uremic encephalopathy Neurochecks, NIH stroke scale, Ativan, Haldol for agitation (7) Hypokalemia: (8) Hemolytic uremic syndrome: (9) Shiga toxin-producing Escherichia coli (E. coli) (STEC) O157: - Bloody diarrhea now resolved -Developed hemolytic uremic syndrome with Shiga toxin ? Uremia improving renal function improving, hemoglobin down to 7.2 ? LDH 323, haptoglobin within normal limits, peripheral smear pending ? Status post supportive care renal function improving, -hemoglobin stable at 7.2, has received Epogen, I attempted to correct anemia with 1 unit PRBC, due to generalized weakness, with 1 unit of blood, however after 2 IVs infiltrated, patient and family refused any further blood products ? Hemoglobin 7.3 this morning Plan Hypomagnesemia. Supplement Multiple other medical problems outlined in past medical history Holding home medicines. Urine eosinophils positive Full code Heparin for DVT prophylaxis currently on hold SCDs Monitor mentation, patient refuses any IVs patient's family refuses IVs, placing a PICC line or midline carry significant morbidity and mortality if she rips it out with her agitation, will avoid for now, continue p.o. medications monitor mentation, PT OT, hopefully we can discharge today if her toxic encephalopathy clears up if not then we will have to monitor for 24 hours I increased her gabapentin 100 3 times daily after discussion with neurology, continue her venlafaxine,coutinue modafinil Attestations 2 Medical Necessity Statement*: Patient requires hospitalization, for acute encephalopathy, uremia, encephalopathy sec to hemolytic uremic syndrome, had an extensive stroke eval neurology consultation spoke to patient, spoke to family spoke to nursing staff Coding Level of Care Code Critical Care >/= 30 minutes Critical care time (in minutes): 55 The high probability of a clinically significant, sudden or life threatening deterioration, as referenced in this documentation, required my full and direct attention, intervention and personal management. The critical care time shown is in addition to time spent performing any reported separately billable procedures and includes the following: [x] Data and vital sign review and interpretation [x ] Patient assessment, examination and intervention [x] Medication orders and management [x] Patient/Family updates as able [x] Care Coordination and Documentation. Diagnoses Acute kidney injury N17.9 Hyponatremia E87.1 UTI (urinary tract infection) N39.0 Proteinuria R80.9 Anemia D64.9 Acute encephalopathy G93.40 Hypokalemia E87.6 Hemolytic uremic syndrome D59.30 Shiga toxin-producing Escherichia coli (E. coli) (STEC) O157 A49.8
--- NOTE | 2023-09-29 13:24 | SUR.PREOP ---
PICC NOTE Orders for PICC received for poor peripheral access. Called ordering MD to clarify orders as no clinical indication for picc was immediatley seen. Patient meets indication for midline access. Upon clarifying the MD stated that the patient was confused and at this time was a high risk for pulling the iv accesses out. Current plan was to treat with by mouth and medcations at this point. He stated to cancel the PICC order at this time and he would readress if more indicated at a later time. Orders noted.
[2023-09-29 13:52] LABS: Procalcitonin 0.21 ng/mL (0-0.5)
--- NOTE | 2023-09-29 14:00 | PM.DCS ---
Discharge Providers Date of Admission: 09/22/23 11:36 Date of Discharge: September 29, 2023 Attending Provider at Admission: Brandon Mcginnis MD Attending Provider at Discharge: Chau Hess MD Diagnoses at Discharge Discharge Diagnosis (1) Acute kidney injury: Status: Acute (2) Hyponatremia: Status: Acute (3) UTI (urinary tract infection): Status: Acute (4) Proteinuria: Status: Acute (5) Anemia: Status: Acute (6) Acute encephalopathy: Status: Acute (7) Hypokalemia: Status: Acute (8) Hemolytic uremic syndrome: Status: Acute (9) Shiga toxin-producing Escherichia coli (E. coli) (STEC) O157: Status: Acute Reason for Visit Reason for Visit: weak Hospital Course Hospital Course Darline Crystal is a 78 year old female who comes in the emergency department with her family with history of illness for the last week. She has had vomiting, diarrhea. She saw her primary care provider on Tuesday and he was concerned that she had gastroenteritis, and possible upper GI irritation. PPI was increased. She has had no fevers. No blood in stool or black or tarry stool. She has become less responsive since Tuesday, and significantly confused. She twitches at times, noted yesterday and today. Since getting fluid in the emergency department, she seems less confused. Family reports this is never happened before. Patient is confused, has difficulty giving a history, but can answer a few simple questions. please look at my last progress note for further detail as patient had a prolonged and complicated hospital course Patient presented to [facility] for acute renal failure, initially thought to be related to dehydration, creatinine up to 5.2, some component possibly interstitial nephritis given her use of Protonix, given that her urine was positive for eosinophils, she also had uremia, her creatinine improved to 3.7, after further test results it was revealed that patient's stool was positive for Shiga toxin. Likely patient's symptoms were related to undercooked meat, E. coli 780296, when she got admitted there was concerns for UTI she started on antibiotics, then with Shiga toxin production resulting in hemolytic uremic syndrome, nonetheless overall her creatinine did improve, creatinine on discharge is 3.7, advised to hydrate well, follow-up with primary care provider for recheck hemoglobin tomorrow certainly interstitial nephritis is a possibility if her renal function does not improve with outpatient follow-up with primary care and nephrology in [place], certainly a renal biopsy could be considered or even a trial of steroids. Will have her follow-up with primary care and follow-up with nephrology in [place]. Patient did develop anemia during her hospitalization, likely multifactorial from hemolytic uremic syndrome as above, and some component related to renal failure, she did receive epogen due to initial concerns of renal failure as etiology, attempts were made to transfuse PRBC, when hemoglobin was 7.3, but due to poor peripheral access, multiple infiltrated IV, and patient and families refusal for further intervention, she barely recieved 100ml of blood, and hgb on discharge was 7.3, patient and family refuses any more blood products For patient's acute encephalopathy -Please look at my prior progress note for further detail -Patient had concerns for possible basilar artery stroke 09/29/2023, stroke alert, neurology consulted, CT head within normal limits, MRI within normal limits MRA head and neck within normal limits, so far urinalysis within normal limits, electrolytes are relatively within her normal limits ? Concerns for metabolic versus toxic versus septic encephalopathy ? Urinalysis within normal limits afebrile, the only other infectious source I could think of is a possible atypical pneumonia however she is on room air afebrile blood cultures have been within normal limits will discharge on doxycycline # The other etiology likely could be from metabolic encephalopathy from polypharmacy, as she had received Xanax, morphine, Requip, other possibility is she had not received modafinil, certainly worsening of her narcolepsy could be an etiology ? Nonetheless other possibilities could be prolonged hospitalization, sundowning ? I had strongly recommended for patient and family for her to be monitored another 24 hours as inpatient as my worry was for something nefarious as an etiology behind her encephalopathy ? However patient's family and patient were adamant about going home ?discussed morbidity and mortality, they voiced understanding, all questions answered, for now they want to be discharged home with close follow-up with primary care ? Nonetheless I discharged her home with doxycycline continue home medications reduce dose of gabapentin given her kidney function, alprazolam to be used very sparingly for anxiety close monitoring by family members, discussed extensively risk of falls, risk of clinical deterioration, they voiced understanding, all questions answered, for now they still want her to be discharged home, and patient wants to be discharged home, ? On discharge she was actually ambulating with physical therapy alert to person, to place, not to time she can follow commands becomes very easily agitated wants to go home ? Discharged with close follow-up with Dr. Dc tomorrow Physical Exam Const: COMMON NORMALS: no acute distress ORIENTATION/CONSCIOUSNESS: Yes awake, Yes oriented to person and Yes oriented to place; not oriented to time Resp: COMMON NORMALS: normal respiratory effort, No retractions, No use of accessory muscles and clear to auscultation bilaterally AUSCULTATION: clear to auscultation bilaterally Cardio: COMMON NORMALS: regular rate, regular rhythm, S1 normal heart sound present and S2 normal heart sound present RATE: regular rate RHYTHM: regular rhythm HEART SOUNDS: S1 normal heart sound present and S2 normal heart sound present GI: COMMON NORMALS: Normal to inspection, nondistended, normoactive bowel sounds present and non-tender Extremity: COMMON NORMALS: no clubbing, cyanosis or edema and no pedal edema Neuro: COMMON NORMALS: CN's II-XII intact bilaterally, moves all extremities and no focal motor deficits SENSORIUM/ORIENTATION: Yes oriented to person, Yes oriented to place and No oriented to time Psych: COMMON NORMALS: mental status grossly normal Urinary Catheter Management: Aly: Cath Placed During This Visit: yes, but has since been removed by the nurse Reason for Continuing Indwelling Catheter: Decision to DC Catheter Urinary Catheter Date of Insertion: 09/22/23 Urinary Catheter Time of Insertion: 12:06 Date Urinary Catheter Removed: 09/27/23 Time Urinary Catheter Discontinued: 11:00 Discharge Data Studies Completed and Pending Completed Studies During Hospitalization Category Date Time Status CT head wo con* [id number] Routine Cat Scan 09/28/23 09:[address] head wo con* [id number] Stat Cat Scan 09/22/23 08:[address] head wo con* [id number] Stat Cat Scan 09/29/23 09:[address] kidney stone [id number] Stat Cat Scan 09/22/23 10:30 Completed XR chest 1V portable [id number] Routine Exams 09/28/23 09:44 Completed XR chest 1V portable [id number] Stat Exams 09/22/23 08:46 Completed XR chest 1V portable [id number] Stat Exams 09/25/23 11:28 Completed MR head wo con* [id number] Stat MRI 09/29/23 09:27 Completed MRA head [MR angio head wo con [id number]] Stat MRI 09/29/23 09:27 Completed US renal BI* [id number] Routine Ultrasound 09/27/23 11:24 Completed Pending at discharge Category Date Time Status XR chest 1V portable [id number] Routine Exams 09/29/23 10:33 Taken Blood Culture Stat Lab 09/28/23 10:45 Results CRP [C Reactive Protein] Routine Lab 09/29/23 07:23 Results Complete Blood Count w/Auto AM LABS Lab 09/30/23 04:00 Ordered Comprehensive Metabolic Panel AM LABS Lab 09/30/23 04:00 Ordered Magnesium AM LABS Lab 09/30/23 04:00 Ordered OVA and Parasites, Conc and PE Routine Lab 09/24/23 14:08 Results Phosphorus AM LABS Lab 09/30/23 04:00 Ordered Procalcitonin Routine Lab 09/29/23 07:23 Results Salmonella / Shigella / Campy Routine Lab 09/24/23 14:08 Results Urinalysis Routine Lab 09/29/23 10:33 Uncollected Urine Protein Electrop Random Routine Lab 09/22/23 15:42 Results Laboratory Results WBC 11.13 10^3/uL (3.29-11.43) 09/29/23 07:23 RBC 2.72 10^6/uL (3.85-5.65) L 09/29/23 07:23 Hgb 7.20 g/dL (11.27-16.99) L 09/29/23 07:23 Hct 22.8 % (36-47) L 09/29/23 07:23 MCV 83.8 fl (85-98) L 09/29/23 07:23 MCH 26.5 pg (27-33) L 09/29/23 07:23 MCHC 31.6 g/dL (30-55) 09/29/23 07:23 RDW 16.9 % (12.1-15.1) H 09/29/23 07:23 Plt Count 380 10^3/cmm (157-399) 09/29/23 07:23 MPV 9.1 fL (7.4-10.4) 09/29/23 07:23 Neut % (Auto) 73.6 % 09/29/23 07:23 Lymph % (Auto) 15.7 % 09/29/23 07:23 [place] % (Auto) 5.6 % 09/29/23 07:23 Eos % (Auto) 3.5 % 09/29/23 07:23 Baso % (Auto) 0.4 % 09/29/23 07:23 Neut # (Auto) 8.20 10^3/uL (1.8-7.7) H 09/29/23 07:23 Lymph # (Auto) 1.8 10^3/uL (0.8-4.8) 09/29/23 07:23 [place] # (Auto) 0.6 10^3/uL (0.2-0.9) 09/29/23 07:23 Eos # (Auto) 0.4 10^3/uL (0.0-0.8) 09/29/23 07: Baso # (Auto) 0.0 10^3/uL (0.0-0.1) 09/29/23 07:23 Nucleated RBC % (auto) 0 % 09/29/23 07: Nucleated RBCs # 0.0 /100WBC 09/29/23 07:23 Peripher Smr Path Cons Sent for review 09/29/23 07:23 ESR 26 mm/hr (0-15) H 09/28/23 04:17 Haptoglobin 54.0 mg/L (30-200) 09/29/23 07:23 Specimen Type Arterial 09/29/23 09:20 Sample Site Radial, right 09/29/23 09:20 ABG pH 7.42 (7.35-7.45) 09/29/23 09:20 ABG pCO2 35.7 mmHg (35-45) 09/29/23 09:20 ABG pO2 63.4 mmHg (80.0-100.0) L 09/29/23 09:20 ABG PO2/FiO2 Ratio 0 09/29/23 09:20 ABG HCO3 22.9 mmol/L (22-26) 09/29/23 09:20 ABG O2 Saturation 93.1 09/29/23 09:20 ABG Base Excess -1.4 mmol/L (-2.0-2.0) 09/29/23 09:20 Bobby Test Pos 09/29/23 09:20 A-a O2 Gradient 5.4 mmHg (5-10) 09/29/23 09:20 Hematocrit 24.5 % (37-47) L 09/29/23 09:20 Hgb O2 Saturation 91.4 % (95-100) L 09/29/23 09:20 Carboxyhemoglobin 1.1 %THgb (0.4-20.1) 09/29/23 09:20 Methemoglobin 0.7 % (0.4-1.5) 09/29/23 09:20 Total Hemoglobin 8.0 g/dL (12-16) L 09/29/23 09:20 Sodium 139.0 mmol/L (131-143) 09/29/23 09:20 Potassium 3.4 mmol/L (3.5-5.0) L 09/29/23 09:20 Glucose 115.0 mg/dL (70-115) 09/29/23 09:20 Ionized Calcium 1.3 mmol/L (1.1-1.4) 09/29/23 09:20 O2 Delivery Device Room air 09/29/23 09:20 FiO2 21.0 % 09/29/23 09:20 Social Security Benefits Interviewer ID [email or web address] 09/29/23 09:20 Sodium 137 mmol/L (136-145) 09/29/23 07:23 Potassium 3.5 mmol/L (3.5-5.1) 09/29/23 07:23 Chloride 100 mmol/L (98-107) 09/29/23 07:23 Carbon Dioxide 21 mmol/L (22-29) L 09/29/23 07:23 Anion Gap 19.5 (5-19) H 09/29/23 07:23 BUN 50 mg/dL (8-23) H 09/29/23 07:23 Creatinine 3.7 mg/dL (0.5-0.9) H 09/29/23 07:23 GFR Calculation Not Reportable 09/29/23 07:23 Glucose 111 mg/dL (65-115) 09/29/23 07:23 POC Glucose 121 mg/dL (70-110) H 09/29/23 10:46 Calculated Osmolality 298 mOsm/kg (285-295) H 09/29/23 07:23 Calcium 8.8 mg/dL (8.5-10.5) 09/29/23 07:23 Phosphorus 6.1 mg/dL (2.5-4.5) H 09/29/23 07:23 Magnesium 2.1 mg/dL (1.7-2.3) 09/29/23 07:23 Iron 72 ug/dL (37-145) 09/22/23 08:53 TIBC 262 mcg/dl 09/22/23 08:53 % Saturation 27.4 % (20-50) 09/22/23 08:53 Unsat Iron Binding 190 ug/dL (112-347) 09/22/23 08:53 Ferritin 720 ng/mL (15-150) H 09/22/23 08:53 Total Bilirubin 0.3 mg/dL (0.15-1.2) 09/29/23 07:23 AST 16 U/L (0-32) 09/29/23 07:23 ALT 16 U/L (0-33) 09/29/23 07:23 Alkaline Phosphatase 70 U/L (35-105) 09/29/23 07:23 Lactate Dehydrogenase 323 U/L (135-214) H 09/29/23 07:23 Creatine Kinase 102 U/L (26-192) 09/22/23 08:53 Troponin T Baseline 30 ng/L (0-10) H 09/28/23 10:45 Troponin T 120 Minute 27.53 ng/L (0-10) H 09/28/23 12:04 Delta Troponin T -2.47 ABS# (0-10) L 09/28/23 12:04 Troponin T Hi Sens 6Hr 22.47 ng/L (0-10) H 09/29/23 07:23 Troponin T Hi Sens 6Hr Delta -7.53 ng/L (0-12) L 09/29/23 07:23 C-Reactive Protein 81.1 mg/L (0.0-4.9) H 09/28/23 04:17 NT-Pro-B Natriuret Pep 9798 pg/mL (0-450) H 09/25/23 13:03 Total Protein 6.1 g/dL (6.6-8.7) L 09/29/23 07:23 Albumin 3.1 g/dL (3.5-5.2) L 09/29/23 07:23 Globulin 3.0 g/dL (1.3-4.6) 09/29/23 07:23 Pwfwx-9-Okktqyscg 0.4 g/dL (0.2-0.3) H 09/22/23 15:19 Txdvt-4-Qafzkrpxv 0.6 g/dL (0.5-0.9) 09/22/23 15:19 Myvg-0-Ygbgqunf 0.4 g/dL (0.4-0.6) 09/22/23 15:19 Uykv-7-Semilzzc 0.4 g/dL (0.2-0.5) 09/22/23 15:19 Gamma Globulins 0.7 g/dL (0.8-1.7) L 09/22/23 15:19 Abnorm Protein Band 1 Not Reportable 09/22/23 15:19 Triglycerides 236 mg/dL (0-150) H 09/22/23 08:53 Procalcitonin 0.21 ng/mL (0-0.5) 09/29/23 07:23 TSH 0.86 uIU/mL (0.27-4.20) 09/23/23 05:18 Urine Color Yellow (Yellow) 09/28/23 11:44 Urine Appearance Clear (CLEAR) 09/28/23 11:44 Urine pH 6 (5-7) 09/28/23 11:44 Ur Specific [place] 1.020 (1.005-1.030) 09/28/23 11:44 Urine Protein 3+ (Negative) H 09/28/23 11:44 Urine Glucose (UA) Norm (Normal) 09/28/23 11:44 Urine Ketones Negative (Negative) 09/28/23 11:44 Urine Blood 2+ (Negative) H 09/28/23 11:44 Urine Nitrate Negative (Negative) 09/28/23 11:44 Urine Bilirubin Neg (Negative) 09/28/23 11:44 Urine Urobilinogen Norm mg/dL (Negative) 09/28/23 11:44 Ur Leukocyte Esterase Negative (Negative) 09/28/23 11:44 Urine RBC 0-4 /hpf (0-2) H 09/28/23 11:44 Urine WBC 10-15 /hpf (0-5) H 09/28/23 11:44 Ur Eosinophil Smear 20 (0-0) H 09/22/23 15:42 Ur Squamous Epith Cells 0-4 /hpf (0-5) H 09/28/23 11:44 Ur Transition Epith Cell 0-4 /hpf 09/28/23 11:44 Amorphous Sediment Trace /hpf 09/28/23 11:44 Urine Bacteria Trace /hpf (NONE) 09/28/23 11:44 Hyaline Casts 0-4 /lpf H 09/28/23 11:44 Fine Granular Casts 0-4 /lpf H 09/28/23 11:44 Urine Mucus 1+ /hpf 09/28/23 11:44 Urine Eosinophils Eosinophils seen H 09/22/23 15:42 Ur Random Creatinine 66 mg/dL (20-275) 09/22/23 15:42 U Random Total Protein 516 mg/dL 09/22/23 15:42 U Random Total Protein 545 mg/dL (5-24) H 09/22/23 15:42 Urine Creatinine 61 mg/dL (28-217) 09/22/23 15:42 Protein/Creatinin Ratio 8258 mg/g creat (24-184) H 09/22/23 15:42 Protein/Creat Ratio 24h 8.258 (0.024-0.184) H 09/22/23 15:42 U Abnormal Prot Band 2 Not Reportable 09/22/23 15:19 U Abnormal Prot Band 3 Not Reportable 09/22/23 15:19 Pro Electrophoresis Int See note 09/22/23 15:19 C. difficile (PCR) Cancelled 09/25/23 11:51 Blood Type A Negative 09/28/23 10:45 Rho(D) Type Rh negative 09/28/23 10:45 Antibody Screen Negative 09/28/23 10:45 Crossmatch See Detail 09/28/23 10:45 Vitals Last Vital Signs Temp 97.4 F L 09/29/23 11:33 Pulse 82 09/29/23 11:33 Resp 17 09/29/23 11:33 BP 159/68 09/29/23 11:33 Pulse Ox 91 09/29/23 11:33 O2 Del Method Room Air 09/28/23 16:00 O2 Flow Rate 3 09/23/23 08:00 Discharge Plan Discharge Patient Disposition: Home Condition: Stable Prescriptions: New clonidine HCl 0.1 mg Tablet 0.1 mg PO BID 30 Days Qty: 60 0RF alprazolam 0.5 mg Tablet 0.25 mg PO BID PRN (Reason: Anxiety) 6 Days Qty: 3 0RF amlodipine 10 mg Tablet 10 mg PO DAILY 30 Days Qty: 30 0RF doxycycline hyclate 100 mg tablet 100 mg PO BID 5 Days Qty: 10 0RF gabapentin 100 mg capsule 100 mg PO Q8H 30 Days Qty: 90 0RF Continued tolterodine 2 mg capsule,extended release 24hr 2 mg PO DAILY venlafaxine 75 mg capsule,extended release 24hr 75 mg PO QAM alendronate 70 mg tablet 70 mg PO Q7D omeprazole 40 mg capsule,delayed release(DR/EC) 40 mg PO DAILY pramipexole 0.25 mg tablet 0.25 mg PO BID ipratropium bromide 42 mcg (0.06 %) spray,non-aerosol 1 spray INTRANASAL DAILY PRN (Reason: ALLERGIES) modafinil 100 mg tablet 100 mg PO QAM Discontinued metformin 500 mg tablet 500 mg PO BID amlodipine 5 mg tablet 5 mg PO QAM gabapentin 300 mg capsule 300 mg PO TID losartan-hydrochlorothiazide 50-12.5 mg tablet 1 tab PO QAM Discharge Orders: Discharge Order (Routine); Ordered 09/29/23 Ordered By: Chau Hess Referrals: Nissa Sarmiento DO [Referring] - 1-3 days ([facility] We have notified your physician's clinic of the need for a follow-up appointment to be scheduled. If you have not heard from them within the next 2 business days, please call them directly. ) Discharge Diet: Cardiac Discharge Activity: Resume usual activity Patient Instructions: Clonidine (By mouth), Alprazolam (By mouth), Gabapentin (By mouth) (Neurontin, FusePaq Fanatrex, [place],..., Amlodipine (By mouth), Acute Kidney Injury (GEN), Urinary Tract Infection in Women (GEN), Altered Mental Status (ED), Opioid Safety Activity Restrictions/Additional Instructions: - For your hemolytic uremic syndrome, E. coli 135754, please abstain from any undercooked or red meat -For your renal failure and uremia your creatinine on discharge is 3.7, BUN is 50, please have Dr. Dc follow urine kidney function, appointment has been obtained for nephrology, we have to watch her kidney function very closely -Please hydrate well drink at least 1 to 1.5 L a day -Please monitor mentation very closely -I have discharged you on Xanax 0.25 mg twice daily as needed for anxiety due to your anxiety episodes during your hospitalization -If Xanax 0.25 mg is to have a strong dose please decrease it to 0.125 mg twice daily as needed, -Please monitor for your risk of falls, lightheadedness or dizziness if so stop taking medication -As discussed with you and your family of increased risk of falls, increased risk of confusion, please ambulate with care, and family monitoring for the next 24 hours -For your anemia, likely hemolytic uremic syndrome, hemoglobin 7.2 on discharge you have received Epogen, please monitor hemoglobin through Dr. Dc's office closely -I am discharging you on doxycycline for possible atypical pneumonia, ? Your urinalysis was within normal limits, ? Blood cultures so far no growth ? For your agitation, increased levels of confusion please have family members monitor review very closely, ? Given your kidney function your gabapentin dose has been decreased to 100 mg 3 times daily, this potentially can be increased to your home dose based upon your kidney function improving ? Please monitor Darline's mentation closely monitor for her risk of falls, I instructed family members to monitor her very closely for the next 24 hours, Exa?her appointment Dr. Rosa at 9:20 AM Discharge Attestations Time Spent in Discharge Care*: greater than 30 min Quality Metrics Clinical Quality Measures [ No reported AMI, CVA or VTE this stay] Coding Level of Care Code 57243 Total time (in minutes) for Discharge: 45 Diagnoses Acute kidney injury N17.9 Hyponatremia E87.1 UTI (urinary tract infection) N39.0 Proteinuria R80.9 Anemia D64.9 Acute encephalopathy G93.40 Hypokalemia E87.6 Hemolytic uremic syndrome D59.30 Shiga toxin-producing Escherichia coli (E. coli) (STEC) O157 A49.8
[2023-09-29 14:09] LABS: C Reactive Protein 58.7 mg/L (0.0-4.9)
[2023-09-29 15:39] VITALS: BP 134/63; PULSE 73; RESP 17; TEMP 36.5; O2SAT 94
[2023-09-29 16:15] VITALS: BP 134/63; PULSE 73; RESP 17; TEMP 36.5; O2SAT 94
--- NOTE | 2023-09-29 18:05 | P.CONIM_ITS ---
Providers/Reason For Consult 2 Consulting Physician/Specialty*: Hero Rosales MD neurology and epilepsy Reason for Consult*: Code stroke room 257 Attending Physician: Chau Hess MD History of Present Illness History of Present Illness Darline Crystal is a 78 year old female who was admitted on 09/22/2023 following a viral GI illness. Patient was admitted with dehydration and renal failure with BUN in the 90s and creatinine of 5.6. Patient was also treated for urinary tract infection. On 09/28/2023 the patient was reported to become very confused without focal deficits. She was also discovered to have stool cultures positive for Shiga toxin-producing E. coli (STEC) 0157 with potential for hemolytic uremic syndrome. On 09/29/2023 patient was reported to experience decreased level consciousness with increasing global confusion and signs of encephalopathy. Code stroke was initiated. Noncontrast head CT was obtained and revealed no acute findings. Patient was scheduled for head MRI with MRA of the [place] and great vessels of the neck. MRA performed on 09/29/2023 was negative except for small right middle cerebral artery which was reported to be patent. Head MRI performed on 09/29/2023 was negative for any acute findings there was report of mild to moderate atrophy and small vessel ischemic changes. Neurological examination revealed the exam to be nonfocal with patient more alert and able to converse some with her family. Clinical examination suggestive of an encephalopathy possibly related to renal insufficiency and E. coli infection. Past medical history: Anemia Renal insufficiency Protein urine Osteoporosis Restless leg syndrome Drug allergies: None Admission medications: Fosamax 70 mg p.o. weekly Xanax 0.25 mg p.o. twice daily, as needed Norvasc 10 mg p.o. daily Clonidine 0.1 mg p.o. twice daily Doxycycline 100 mg p.o. twice daily Neurontin 100 mg every 8 hours for restless leg syndrome Modafinil 100 mg p.o. daily Omeprazole 40 mg p.o. daily Pramipexole 0.25 mg p.o. twice daily for restless leg syndrome Tollterodine 2 mg p.o. daily Effexor 75 mg p.o. daily Habits: Unknown Review of Systems 2 General: Reports: ROS unobtainable due to medical condition Medications/Allergies Home Medications Medication Instructions Recorded Confirmed Last Taken Type alendronate 70 mg tablet 70 mg PO Q7D 09/22/23 09/22/23 Unknown History ipratropium bromide 42 mcg (0.06 1 spray intranasal DAILY PRN 09/22/23 09/22/23 Unknown History %) nasal spray ALLERGIES modafinil 100 mg tablet 100 mg PO QAM 09/22/23 09/22/23 09/21/23 History omeprazole 40 mg capsule,delayed 40 mg PO DAILY 09/22/23 09/22/23 09/21/23 History release pramipexole 0.25 mg tablet 0.25 mg PO BID 09/22/23 09/22/23 09/21/23 History tolterodine 2 mg capsule,extended 2 mg PO DAILY 09/22/23 09/22/23 09/21/23 History release 24 hr venlafaxine 75 mg capsule,extended 75 mg PO QAM 09/22/23 09/22/23 09/21/23 History release 24 hr alprazolam 0.5 mg tablet 0.25 mg (1/2 x 0.5 mg) PO BID PRN 09/29/23 Unknown Rx Anxiety 6 days #3 tabs amlodipine 10 mg tablet 10 mg PO DAILY 30 days #30 tabs 09/29/23 Unknown Rx clonidine HCl 0.1 mg tablet 0.1 mg PO BID 30 days #60 tabs 09/29/23 Unknown Rx doxycycline hyclate 100 mg tablet 100 mg PO BID 5 days #10 tabs 09/29/23 Unknown Rx gabapentin 100 mg capsule 100 mg PO Q8H 30 days #90 caps 09/29/23 Unknown Rx Allergies Allergy/AdvReac Type Severity Reaction Status Date / Time No Known Allergies Allergy Verified 09/22/23 16:31 PFSH Acute 2 PFSH: Medical History (Updated 09/29/23 @ 13:28 by Chau Hess MD) SARATH (obstructive sleep apnea) Patient stopped CPAP Narcolepsy Depression GERD (gastroesophageal reflux disease) Diabetic neuropathy Type 2 diabetes mellitus Osteoporosis Hypertension Surgical History (Updated 09/22/23 @ 12:58 by Brandon Mcginnis MD) History of colon surgery Family History Other Diabetes mellitus, type 2 Social History (Updated 09/22/23 @ 12:59 by Brandon Mcginnis MD) Smoking and tobacco/nicotine status: never used tobacco/nicotine Alcohol intake: never Vitals/I&O/Wt Last Vital Signs Temp 97.7 F 09/29/23 16:15 Pulse 73 09/29/23 16:15 Resp 17 09/29/23 16:15 BP 134/63 09/29/23 16:15 Pulse Ox 94 09/29/23 16:15 O2 Del Method Nasal Cannula 09/29/23 15:39 O2 Flow Rate 3 09/23/23 08:00 Weight last 48 hrs Weight 171 lb 9.6 oz Weight 171 lb 8 oz Physical Exam 2 Narrative: The patient is alert but decreased verbal output. Patient is confused but does recognize her family. Patient does follow commands. Pupils 3 to 4 mm round reactive to light accommodation. Extraocular movements intact. Cranial nerves II through XII revealed no obvious facial weakness. Motor testing grossly nonfocal although the patient displayed some intermittent tremors in upper and lower extremities. Plantar responses flexor bilaterally. Sensory examination was intact to touch. Throat clear. Lungs clear. Heart regular rhythm and rate extremities were negative for cyanosis. Patient did display intermittent movements of her legs. According to the family she has a history of restless leg syndrome treated with Neurontin. Urinary Catheter Management: Aly: Cath Placed During This Visit: yes, but has since been removed by the nurse Reason for Continuing Indwelling Catheter: Decision to DC Catheter Urinary Catheter Date of Insertion: 09/22/23 Urinary Catheter Time of Insertion: 12:06 Date Urinary Catheter Removed: 09/27/23 Time Urinary Catheter Discontinued: 11:00 Data 09/29/23 07:23 09/29/23 07:23 Micro: Microbiology 09/28/23 10:45 Blood Culture - Preliminary Blood NEGATIVE TO DATE 09/28/23 10:37 Blood Culture - Preliminary Blood NEGATIVE TO DATE 09/25/23 11:51 E. coli Shiga-like Toxin (PCR) - Final Stool Campylobacter (PCR) - Final A&P Assessment and plan (1) Acute encephalopathy: Impression: 1. Acute metabolic encephalopathy most likely secondary to acute renal failure and Shiga Toxin-producing E. coli 0157 Plan: 1. Agree with increasing Neurontin to 100 mg p.o. 3 times daily for restless leg syndrome since family reports that Neurontin works for the patient's restless leg syndrome 2. Agree with discontinuing pramipexole 3. Agree with current treatment plan and monitor patient's condition Consult Attestations 2 Medical Necessity Statement: Patient evaluated by neurology for code stroke with clinical symptoms consistent with diffuse encephalopathy. Note: Head MRI negative for acute findings and negative for acute stroke. MRA negative for occlusion. Coding Level of Care Code 79290 Diagnoses Acute encephalopathy G93.40
[2023-10-05 10:40] LABS: Albumin,Urine Random 68 %; Alpha-1-Globulins Urine Random 6 %; Alpha-2-Globulins Urine Random 5 %; Beta-Globulin,Urine Random 10 %; Gamma Globulin,Urine Random 11 %
== END 2023-09-29 16:05 | disposition home or self-care (01) | DRG 682 ==
LOC: ER 08:57 → MEDSURG 12:55
PROVIDERS: Admitting Provider Internal Medicine; Emergency Provider Family Medicine; Visit Provider Family Medicine
DX: N17.9 Acute kidney failure, unspecified (principal); D59.30 Hemolytic-uremic syndrome, unspecified; G93.41 Metabolic encephalopathy; E87.1 Hypo-osmolality and hyponatremia; N39.0 Urinary tract infection, site not specified; E87.20 Acidosis, unspecified; G47.33 Obstructive sleep apnea (adult) (pediatric); G47.419 Narcolepsy without cataplexy; F32.A Depression, unspecified; K21.9 Gastro-esophageal reflux disease without esophagitis; E11.40 Type 2 diabetes mellitus with diabetic neuropathy, unspecified; M81.0 Age-related osteoporosis without current pathological fracture; F41.9 Anxiety disorder, unspecified; E83.42 Hypomagnesemia; I12.9 Hypertensive chronic kidney disease with stage 1 through stage 4 chronic kidney disease, or unspecified chronic kidney disease; E11.22 Type 2 diabetes mellitus with diabetic chronic kidney disease; N18.9 Chronic kidney disease, unspecified; K52.9 Noninfective gastroenteritis and colitis, unspecified; E86.0 Dehydration; D63.1 Anemia in chronic kidney disease; E86.1 Hypovolemia; B96.23 Unspecified Shiga toxin-producing Escherichia coli [E. coli] [STEC] as the cause of diseases classified elsewhere; E87.6 Hypokalemia
CPT/HCPCS: 36415; 36416; 36430; 36600; 51702; 70450; 70544; 70551; 71045; 74176; 76770; 80048; 80051; 80053; 80503; 81001; 82274; 82330; 82550; 82570; 82728; 82805; 82962; 83010; 83540; 83550; 83615; 83630; 83735; 83880; 84100; 84145; 84155; 84156; 84165; 84166; 84443; 84478; 84484; 85025; 85651; 85999; 86140; 86850; 86900; 86920; 87040; 87045; 87086; 87177; 87209; 87427; 87449; 92523; 92610; 93005; 96372; 96374; 97116; 97161; 97167; 99285; C9113; J0696; J1630; J1644; J1815; J1940; J2270; J3475; J3490; J7030; J7070; P9016; P9046; Q3014; Q4081